=== PATIENT | male | born 1945 | race Caucasian/White ===

== ENCOUNTER 2018-07-01 09:10 | Inpatient (IN) | payer OTHER, MEDICARE ==
[2018-07-01] MEDS ORDERED: MAGNESIUM CITRATE 300 ML BOTTLE PO ONE (10:24)
--- NOTE | 2018-07-01 10:25 | PDOC ---
History of Present Illness - General Chief Complaint: Constipation Stated Complaint: CONSTIPATION Time Seen by Provider: 07/01/18 09:15 - History of Present Illness Initial Comments: 07/01/18 12:03 Chief complaint: Constipation History of present illness: Patient states that he has not had a bowel movement for over 10 days. He is normally constipated, but not to this extent. Has taken Metamucil, prune juice, and enemas without relief. Review of systems: Admits "bloating" but no evi pain. Denies nausea vomiting diarrhea hematemesis melena or bloody stool. Denies chest pain, shortness of breath, urinary tract symptoms including frequency urgency dysuria or hematuria , visual or focal neurologic symptoms, unsteadiness of gait. Remainder systems reviewed and found to be negative Past medical history: Denies prior GI disease, surgery, including GI bleeding, or obstruction. Admits high blood pressure, elevated lipids, and COPD. Medications as noted. CAD with Quadruple bypass 2009 without subsequent angina or other cardiac symptoms. Social history: Lives independently, cares for himself, daughter and son-in-law nearby, denies tobacco alcohol or nonprescription drugs. Ambulatory and moderately active Family history: Reviewed and noncontributory including early coronary artery disease, metabolic disease including diabetes, GI disease, cancer Physical exam: Alert oriented 3 no acute distress cooperative Afebrile, vital signs normal No pallor or icterus. PERRLA, ENT clear Neck supple without bruit mass or nodes Chest clear to P&A CV S1 and S2 normal without murmur rub or gallop pulses full and symmetric no JVD or edema no bruits irregularly irregular. Not tachycardic. Abdomen mildly distended. Bowel sounds are normal. No fluid wave. Soft without mass tenderness organomegaly. No CVAT Extremities: Multiple old contusions and ecchymoses. No sign of acute injury. No CCE Neurological intact Rectal exam no impaction. No masses or tenderness. No stool is present in the ampulla as far as the end of the fingertip. Stool guaiac was negative on finger , but there was no stool present visually. Impression: Without stool in the ampulla or impaction, suspect obstruction. However, there is no pain, nausea, or vomiting. Plan: Abdomen flat and upright, CBC chemistries, symptomatic treatment, further evaluation and treatment depending on results. Past History - Past Medical History Allergies/Adverse Reactions: Allergies Allergy/AdvReac Type Severity Reaction Status Date / Time No Known Allergies Allergy Verified 07/01/18 09:11 Home Medications: Ambulatory Orders Albuterol Sulfate 0.5% [Ventolin 0.5% -] 1 amp NEB ASDIR 07/01/18 Aspirin [ASA -] 81 mg PO DAILY 07/01/18 Diltiazem Cd [Cardizem Cd -] 120 mg PO DAILY 07/01/18 Ezetimibe [Zetia -] 10 mg PO DAILY 07/01/18 Hydrochlorothiazide [Hctz -] 12.5 mg PO DAILY 07/01/18 Lisinopril [Prinivil] 5 mg PO DAILY 07/01/18 Salmeterol/Fluticasone [Advair 100Mcg/50Mcg -] 1 inh PO BID 07/01/18 Tiotropium [place] [Spiriva] 18 mcg IH DAILY 07/01/18 Cardiac Disorders: Yes ([facility]) COPD: Yes HTN: Yes Hypercholesterolemia: Yes - Surgical History Cardiac Surgery: Yes ([facility]) - Suicide/Smoking/Psychosocial Hx Smoking History: Former smoker Have you smoked in the past 12 months: No Information on smoking cessation initiated: No Hx Alcohol Use: No Drug/Substance Use Hx: No *Physical Exam - Vital Signs Last Vital Signs Temp Pulse Resp BP Pulse Ox 97.5 F L 79 18 105/57 L 95 07/01/18 09:11 07/01/18 09:11 07/01/18 09:11 07/01/18 09:11 07/01/18 09:11 Moderate Sedation - Procedure Monitoring Vital Signs: Procedure Monitoring Vital Signs Temperature 97.5 F L 07/01/18 09:11 Pulse Rate 79 07/01/18 09:11 Respiratory Rate 18 07/01/18 09:11 Blood Pressure 105/57 L 07/01/18 09:11 O2 Sat by Pulse Oximetry (%) 95 07/01/18 09:11 ED Treatment Course - LABORATORY CBC & Chemistry Diagram: 07/01/18 11:52 07/01/18 11:52 Medical Decision Making - Medical Decision Making 07/01/18 15:24 CBC, chemistries, without significant abnormalities. Specifically, no white count, normal kidney function Flat and upright abdominal x-ray shows significant bowel dilatation with air- fluid levels. Considerable stool. CT with IV contrast is inconclusive for bowel obstruction. No transition zone is seen. However, dilatation of the colon above the rectosigmoid is significant. The caliber of the rectum is normal. Surgery consultation was initiated. Spoke by phone with Dr. Olsen. She recommended senna po and large volume soapsuds enemas. She will see patient in consultation. Hospitalist contact initiated for observation admission. 07/01/18 16:17 Spoke with hospitalist nurse practitioner, case discussed, she will see the patient and discussed with attending. Observation admission. Patient stable. *DC/Admit/Observation/Transfer Diagnosis at time of Disposition: Bowel obstruction Qualifiers: Intestinal obstruction type: other intestinal impaction Qualified Code(s): K56.49 - Other impaction of intestine - Discharge Dispostion Decision to Admit order: Yes - Referrals - Patient Instructions - Post Discharge Activity
[2018-07-01] MEDS ORDERED: MAGNESIUM CITRATE 300 ML BOTTLE ONE (10:30)
[2018-07-01 12:10] LABS: BASO % 0.8 % (0-2.0); HEMATOCRIT 32.8 % (35.4-49); HEMOGLOBIN 10.7 GM/dl (11.7-16.9); LYMPH % 6.9 % (8-40); MCHC 32.7 g/dl (32.0-35.9); MEAN CELL VOLUME 82.7 fl (80-96); MEAN PLT VOLUME 7.2 fl (7.5-11.1); NEUT % 84.3 % (42.8-82.8); PLATELET COUNT 379 K/MM3 (134-434); RBC 3.96 M/mm3 (4.00-5.60); WHITE BLOOD COUNT 10.4 K/mm3 (4.0-10.8)
[2018-07-01 12:18] LABS: ALBUMIN 3.2 g/dl (3.4-5.0); ALK PHOS 71 U/L (45-117); ANION GAP 8 MMOL/L (8-16); BILIRUBIN,TOTAL 0.6 mg/dl (0.2-1); BLOOD UREA NITROGEN 17 mg/dl (7-18); CALCIUM 9.3 mg/dl (8.5-10); CHLORIDE 95 mmol/L (98-107); CO2 29 mmol/L (21-32); CREATININE 1.1 mg/dl (0.55-1.3); GLUCOSE,RANDOM 117 mg/dl (74-106); POTASSIUM 4.1 mmol/L (3.5-5.1); SGOT/AST 18 U/L (15-37); SGPT/ALT 14 U/L (13-61); SODIUM 132 mmol/L (136-145); TOT PROT 6.3 g/dl (6.4-8.2)
[2018-07-01] MEDS ORDERED: SODIUM CHLORIDE 500 ML IV STA (12:46)
[2018-07-01] MEDS ORDERED: SENNOSIDES 8.6MG TABLET (FP) PO ONE (15:25)
[2018-07-01] MEDS: SODIUM CHLORIDE 1,000 ML IV SCH (16:50)
[2018-07-01 16:54] LABS: URINE APPEARANCE Clear; URINE BILIRUBIN Negative (NEGATIVE); URINE COLOR Yellow; URINE GLUCOSE (UA) Negative (NEGATIVE); URINE KETONE Negative (NEGATIVE); URINE LEUK ESTERASE Negative (NEGATIVE); URINE NITRITE Negative (NEGATIVE); URINE PROTEIN Trace (NEGATIVE)
[2018-07-01 17:32] VITALS: BMI 24.3
--- NOTE | 2018-07-01 20:53 | CONSULT ---
Consult Consult Specialty:: General Surgery Referred by:: Dr. Long Reason for Consultation:: fecal impaction with dilated small bowel - History of Present Illness Chief Complaint: constipation, abdominal distention and pain History of Present Illness: 73yo M with HTN, HLD, CAD s/p CABGx4, silent [place]'s x5 ("that I didn't know I had "), COPD (120pk-yr history), chronic constipation, presented to ER with 10 days of constipation and increasing abdominal distention with pain across the middle of his abdomen, worse in last few days, associated with some back pain in last several days as well. He denies N/V, and has been eating his usual diet throughout (had cereal for dinner last night); passing gas occasionally but last BM was a week ago Friday. He frequently goes 2-3 days without stool, though it is formed when he does go, and firm but not hard to get out. He uses prune juice prn, and when he realized after 3-4 days that he still had not gone last week, he took Miralax 1 scoop daily for 6 days without effect. He drinks a lot of coffee daily, and very little water in his diet. He tried a suppository yesterday, also without effect. He reports weight loss of 30-35 lbs in last year , starting with about a month when "everything tasted like dirt," so he started eating less, and just continued since then. His clothes are a lot looser. He never had a colonoscopy, but did have sigmoidoscopy once a number of years ago. He quit smoking when he had his CABG. In the ER, he has normal wbc, is anemic with Hb 10.7, and slightly hyponatremic at 132. CT was done showing copious stool throughout the colon, but not past the mid-lower sigmoid, with no clear obstructing lesion or mass. Small bowel is mildly dilated throughout, but no enteral contrast was given. He was given magnesium citrate in ER, and two senna tabs, without effect as of yet. Surgery was asked to evaluate. He is seen and examined in his bed, with at bedside , in the presence of Patria Howe NP. He is mostly uncomfortable when sleeping, though he does have some pain even now, indicating across the middle of his abdomen. He did pass a very little bit of mucus earlier, possibly residual from the suppository. He is still passing occasional flatus. He has no N/V. He describes having tried to use the bathroom, and voided well, but it hurt to push too hard and he "couldn't squeeze well." - History Source History Provided By: Patient, Family Member () Limitations to Obtaining History: No Limitations - Past Medical History Cardio/Vascular: Yes: CAD, HTN, Hyperlipdemia, [place] (silent ones) Pulmonary: Yes: COPD, O2 Dependent (3L at night) Gastrointestinal: Yes: Constipation Renal/: Yes: BPH - Past Surgical History Past Surgical History: Yes: CABG (x4 2010). No: Colonoscopy (sigmoidoscopy only once years ago) - Alcohol/Substance Use Hx Alcohol Use: Yes (once a week) History of Substance Use: reports: None (drinks a lot of caffeine and very little water) - Smoking History Smoking history: Former smoker Have you smoked in the past 12 months: No If you are a former smoker, when did you quit?: 2010 - 3ppd x 40 yrs - Social History Usual Living Arrangement: With Spouse ADL: Independent Home Medications - Allergies Allergies/Adverse Reactions: Allergies Allergy/AdvReac Type Severity Reaction Status Date / Time No Known Allergies Allergy Verified 07/01/18 09:11 - Home Medications Home Medications: Ambulatory Orders Albuterol Sulfate 0.5% [Ventolin 0.5% -] 1 amp NEB ASDIR 07/01/18 Aspirin [ASA -] 81 mg PO DAILY 07/01/18 Diltiazem Cd [Cardizem Cd -] 120 mg PO HS 07/01/18 Ezetimibe [Zetia -] 10 mg PO HS 07/01/18 Hydrochlorothiazide [Hctz -] 12.5 mg PO HS 07/01/18 Lisinopril [Prinivil] 5 mg PO HS 07/01/18 Salmeterol/Fluticasone [Advair 100Mcg/50Mcg -] 1 inh PO BID 07/01/18 Tiotropium [place] [Spiriva] 18 mcg IH DAILY 07/01/18 Home Medications (free text): used miralax for 6 days last week. occasional ibuprofen Family Disease History - Family Disease History Family History: Unremarkable (noncontributory) Review of Systems - Review of Systems Constitutional: reports: Loss of Appetite (about a year ago "everything tasted like dirt" - started eating less, and just continued), Unintentional Wgt. Loss ( 30-35 pounds in last year). denies: Chills, Fever Eyes: reports: Other (wears glasses). denies: Recent Change in Vision HENT: reports: Other (dentures upper). denies: Difficult Swallowing, Throat Pain Neck: denies: Swollen Glands, Tenderness Cardiovascular: denies: Chest Pain, Palpitations Respiratory: denies: Cough, SOB Gastrointestinal: reports: Abdominal Pain (with hpi), Bloating (with hpi), Constipation (chronic - sometimes goes q2-3 days, uses prune juice, suppository prn). denies: Diarrhea, Nausea, Vomiting Genitourinary: reports: Other (nocturia). denies: Burning, Dysuria Musculoskeletal: reports: Back Pain (with hpi, last few days). denies: Joint Pain, Muscle Pain Integumentary: denies: Change in Color, Rash Neurological: denies: Dizziness, Headache, Unsteady Gait Endocrine: reports: Unexplained Weight Loss (see above) Hematology/Lymphatic: reports: Easily Bruised. denies: Excessive Bleeding Psychiatric: denies: Anxiety, Depression Physical Exam Vital Signs: Vital Signs Temperature 97.6 F 07/01/18 18:00 Pulse Rate 68 07/01/18 18:00 Respiratory Rate 19 07/01/18 18:00 Blood Pressure 120/62 07/01/18 18:00 O2 Sat by Pulse Oximetry (%) 96 07/01/18 16:50 Constitutional: Yes: Well Nourished, No Distress, Calm Eyes: Yes: Conjunctiva Clear, EOM Intact, Other (glasses) HENT: Yes: Atraumatic, Normocephalic, Other (edentulous upper) Neck: Yes: Supple, Trachea Midline Cardiovascular: Yes: Regular Rate and Rhythm, Murmur (prominent) Respiratory: Yes: Regular, CTA Bilaterally Gastrointestinal: Yes: Soft, Distention, Hyperactive Bowel Sounds, Tenderness ( mild left-sided, no shirley/guard). No: Palpable Mass ...Rectal Exam: Yes: Hemorrhoids/External (couple of small skin tags), Sphincter Tone Normal, Other (large prostate; vault empty to reach of fingertip , nothing on glove tip) Renal/: No: CVA Tenderness - Left, CVA Tenderness - Right Musculoskeletal: No: Joint Stiffness, Joint Swelling Extremities: No: Cool, Cyanosis Edema: No Peripheral Pulses WNL: Yes Integumentary: Yes: Bruising (scattered ecchymoses on arms), Venous Stasis Changes. No: Jaundice, Rash Neurological: Yes: Alert, Oriented Psychiatric: Yes: Alert, Oriented Labs: CBC, BMP 07/01/18 11:52 07/01/18 11:52 CMP Sodium 132 mmol/L (136-145) L 07/01/18 11:52 Potassium 4.1 mmol/L (3.5-5.1) 07/01/18 11:52 Chloride 95 mmol/L (98-107) L 07/01/18 11:52 Carbon Dioxide 29 mmol/L (21-32) 07/01/18 11:52 Anion Gap 8 MMOL/L (8-16) 07/01/18 11:52 BUN 17 mg/dl (7-18) 07/01/18 11:52 Creatinine 1.1 mg/dl (0.55-1.3) 07/01/18 11:52 Creat Clearance w eGFR > 60 (>60) 07/01/18 11:52 Random Glucose 117 mg/dl (74-106) H 07/01/18 11:52 Calcium 9.3 mg/dl (8.5-10) 07/01/18 11:52 Total Bilirubin 0.6 mg/dl (0.2-1) 07/01/18 11:52 AST 18 U/L (15-37) 07/01/18 11:52 ALT 14 U/L (13-61) 07/01/18 11:52 Alkaline Phosphatase 71 U/L (45-117) 07/01/18 11:52 Total Protein 6.3 g/dl (6.4-8.2) L 07/01/18 11:52 Albumin 3.2 g/dl (3.4-5.0) L 07/01/18 11:52 Urine Test Results Urine Color Yellow 07/01/18 15: Urine Appearance Clear 07/01/18 15:19 Urine pH 7.0 (4.5-8) 07/01/18 15:19 Ur Specific [place] 1.010 (1.010-1.035) 07/01/18 15:19 Urine Protein Trace (NEGATIVE) 07/01/18 15:19 Urine Glucose (UA) Negative (NEGATIVE) 07/01/18 15:19 Urine Ketones Negative (NEGATIVE) 07/01/18 15:19 Urine Blood Negative (NEGATIVE) 07/01/18 15:19 Urine Nitrite Negative (NEGATIVE) 07/01/18 15:19 Urine Bilirubin Negative (NEGATIVE) 07/01/18 15:19 Ur Leukocyte Esterase Negative (NEGATIVE) 07/01/18 15:19 Imaging - Results Cat Scan: Report Reviewed, Image Reviewed (images personally reviewed - copious stool throughout colon to mid-lower sigmoid but not in rectum, no obvious mass; small bowel mildly dilated, (no oral contrast used), + renal cysts, full bladder (per pt has voided more than once since), no free fluid or air) Problem List - Problems (1) Fecal impaction of colon Assessment/Plan: chronic constipation, now with pancolonic impaction pt had senna 2 tabs in ER and mag citrate without nausea or effect as of yet + flatus periodically through this time would repeat 2 senna tonight and give 1-1.5L warm soap suds enema if no effect by morning, have pt take Golytely tomorrow at steady pace unless he has N/V encourage ambulation as able may need bedside commode will f/u tomorrow CEA ordered trend labs watch lytes keep NPO except meds for now Tylenol prn for pain (iv or po) - avoid narcotics pt advised that he will need to increase non-caffeinated fluids in his usual diet after discharge, especially if using fiber supplements or miralax, and with continued heavy caffeine use consider GI consult at some point - pt does need colonoscopy (never had one) could consider doing this admission once cleaned out, or if above measures fail to move stool seen and discussed with Patria Howe NP Code(s): K56.41 - FECAL IMPACTION (2) Generalized abdominal pain Code(s): R10.84 - GENERALIZED ABDOMINAL PAIN (3) Hypertension Assessment/Plan: would hold HCTZ for now Code(s): I10 - ESSENTIAL (PRIMARY) HYPERTENSION Qualifiers: Hypertension type: essential hypertension Qualified Code(s): I10 - Essential (primary) hypertension (4) CAD (coronary artery disease) Code(s): I25.10 - ATHSCL HEART DISEASE OF [place] CORONARY ARTERY W/O ANG PCTRS Qualifiers: Coronary Disease-Associated Artery/Lesion type: [place] artery [place] vs. transplanted heart: [place] heart Associated angina: without angina Qualified Code(s): I25.10 - Atherosclerotic heart disease of [place] coronary artery without angina pectoris (5) COPD (chronic obstructive pulmonary disease) Code(s): J44.9 - CHRONIC OBSTRUCTIVE PULMONARY DISEASE, UNSPECIFIED Qualifiers: COPD type: emphysema Emphysema type: unspecified Qualified Code(s): J43.9 - Emphysema, unspecified
[2018-07-01] MEDS ORDERED: SENNOSIDES 8.6MG TABLET (FP) PO PRN (21:06)
--- NOTE | 2018-07-01 21:14 | HP ---
Admitting History and Physical - Primary Care Physician PCP: Robert Gonzáles - Admission Chief Complaint: no bowel movement History of Present Illness: 73 year old M with h/o CAD s/p 4V CABG (2009), HTN and COPD due to 90pack year tobacco use presents to ED for evaluation due to severe constipation over the last 10days. PAtient reports suffering from chronic constipation with BM q3days (sometimes after taking prune juice), his diet is low in fiber and high in coffee intake. Approximately 1 yr ago pt reports 1 month of "all foods tasting bad because of a metallic taste in his mouth." Since this time, pt has lost 35lbs and his appetite had changed considerably to have only "light foods". Mr. Fernandez endorses worsening abdominal distention, no bowel movement and epigastric fullness for the last 10days, he denies N/V/HAINES/CP/SOB/Dysuria/ Hematuria. Pt called his PCP who recommended a rectal suppository on 06/30 and if he had no bowel movement, then he should proceed to the ED on 07/01 for further evaluation. Pt has not used any other laxative or stool softeners, but does endorse a 6day trial of miralax a few days ago. In ED: Vitals were: BP 120/62, HR 68, T 97.6, O2 sat 96, RR 19 Routine labs WNL Flat and upright abdominal x-ray shows significant bowel dilatation with air- fluid levels. Considerable stool. CT with IV contrast is inconclusive for bowel obstruction. No transition zone is seen. However, dilatation of the colon above the rectosigmoid is significant. The caliber of the rectum is normal. General Surgery consultation was initiated with Dr. Olsen. Recommendation was Senna 2tabs and large volume soapsuds enemas. HEALTHCARE PROVIDERS: CARDS: Dr. Gordon Mccabe PCP: Dr. Gonzáles Pulm: Dr. Joana Mahoney Urology: Dr. 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 ETOH: rare, 1 drink per week Home Medications - Allergies Allergies/Adverse Reactions: Allergies Allergy/AdvReac Type Severity Reaction Status Date / Time No Known Allergies Allergy Verified 07/01/18 09:11 - Home Medications Home Medications: Ambulatory Orders Albuterol Sulfate 0.5% [Ventolin 0.5% -] 1 amp NEB ASDIR 07/01/18 Aspirin [ASA -] 81 mg PO DAILY 07/01/18 Crestor 40 mg 07/01/18 Diltiazem Cd [Cardizem Cd -] 120 mg PO HS 07/01/18 Ezetimibe [Zetia -] 10 mg PO HS 07/01/18 Hydrochlorothiazide [Hctz -] 12.5 mg PO HS 07/01/18 Lisinopril [Prinivil] 5 mg PO HS 07/01/18 Salmeterol/Fluticasone [Advair 100Mcg/50Mcg -] 1 inh PO BID 07/01/18 Tiotropium [place] [Spiriva] 18 mcg IH DAILY 07/01/18 Family Disease History - Family Disease History Family Disease History: Other: Father ( (75) unknown cause), Mother ( (75) VA), Sister (Alive (71) DMII) Review of Systems - Review of Systems Constitutional: reports: No Symptoms Eyes: reports: No Symptoms HENT: reports: No Symptoms Neck: reports: No Symptoms Cardiovascular: reports: No Symptoms Respiratory: reports: No Symptoms Gastrointestinal: reports: Abdominal Pain, Bloating, Constipation Genitourinary: reports: No Symptoms Breasts: reports: No Symptoms Reported Musculoskeletal: reports: No Symptoms Integumentary: reports: No Symptoms Neurological: reports: No Symptoms Endocrine: reports: No Symptoms Hematology/Lymphatic: reports: No Symptoms Psychiatric: reports: Altered Sleep Pattern (chronic insomnia) Physical Examination Vital Signs: Vital Signs Temperature 97.6 F 07/01/18 18:00 Pulse Rate 68 07/01/18 18:00 Respiratory Rate 19 07/01/18 18:00 Blood Pressure 120/62 07/01/18 18:00 O2 Sat by Pulse Oximetry (%) 96 07/01/18 16:50 Constitutional: Yes: No Distress, Calm Eyes: Yes: Conjunctiva Clear, EOM Intact, PERRL HENT: Yes: Atraumatic, Normocephalic Neck: Yes: Supple, Trachea Midline Cardiovascular: Yes: Regular Rate and Rhythm, Murmur (loud systolic murmur A/P region) Respiratory: Yes: Regular, CTA Bilaterally Gastrointestinal: Yes: Soft, Abdomen, Obese, Distention, Hyperactive Bowel Sounds, Tenderness (periumbilical region) Musculoskeletal: Yes: WNL Extremities: Yes: WNL Edema: No Peripheral Pulses WNL: Yes Peripheral Pulses: Left Radial: 2+, Right Radial: 2+, Left Doralis Pedis: 2+, Right Dorsalis Pedis: 2+ Integumentary: Yes: Venous Stasis Changes Neurological: Yes: Alert, Oriented ...Motor Strength: WNL Psychiatric: Yes: Alert, Oriented Labs: CBC, BMP 07/01/18 11:52 07/01/18 11:52 Imaging - Results Chest X-ray: Report Reviewed (CXR 07/01/2018 Chest: Shortness of breath A single view of the chest has been submitted. There are no prior studies for comparison. There are sternal sutures and clips, prominent estela and what may be some left upper lobe atelectasis. The left base is clear. The right lung is clear. The angles are sharp. The bones are intact. The soft tissues are intact. Impression : Previous mediastinal surgery. Left upper lobe atelectasis. Follow -up recommended. If findings do not resolve then CT is needed. Reported By: Yoni Greene MD 07/01/18 [id number]) Cat Scan: Report Reviewed (CT scan 07/01/2018 IMPRESSION: Mild bronchiectatic changes in the included the right lower lobe. Over distended gallbladder with suggestion of a small sludge layering posteriorly. Bilateral renal simple cysts, as described above. Partially distended stomach without gross wall thickening. Moderate to large amount of fecal residue within an over distended/dilated colon measuring up to 8.5 cm in diameter down to the mid sigmoid colon level. There is collapse of the mid sigmoid colon down to the rectosigmoid junction without gross wall thickening. Further evaluation of the colon is needed. Slightly dilated fluid-filled small bowel bowel loops in the entire abdomen and pelvis likely on the basis of ileus. Multilevel degenerative disc disease, as described above Reported By: Lilly Acuña MD [id number]) Other: Report Reviewed (Abdomen Flat and upright 07/01/2018 Abdomen: Constipation. 3 views of the abdomen reveal abdominal distention with retained stool, no sign of free air and no sign of organomegaly or calcifications of significance. The lung bases appear well aerated. The heart is not enlarged. There are chest clips. Because of the abdominal distention, CT is suggested to evaluate for an obstruction. A CT was scheduled for later in the day. Please see that report when available. Reported By: Yoni Greene MD 07/01/18 [id number]) Problem List - Problems (1) Bowel obstruction Assessment/Plan: Surgery consulted, recommendations appreciated Senna tabs qhs 1.5L tap water enema NOW, consider golytely if no bowel movement by the morning consider GI consult for C-scope, pt has never had colonoscopy, remote h/o sigmoidoscopy colace TID NPO except meds Normal saline 42ml/hr overnight for 1L Code(s): K56.609 - UNSP INTESTNL OBST, UNSP TO PARTIAL VERSUS COMPLETE OBST Qualifiers: Intestinal obstruction type: other intestinal impaction Qualified Code(s): K56.49 - Other impaction of intestine; K56.4 - Other impaction of intestine (2) CAD (coronary artery disease) Assessment/Plan: Zetia 10mg crestor 40mg qhs ASA 81mg daily echo ordered for harsh systolic murmur Code(s): I25.10 - ATHSCL HEART DISEASE OF [place] CORONARY ARTERY W/O ANG PCTRS Qualifiers: Coronary Disease-Associated Artery/Lesion type: [place] artery [place] vs. transplanted heart: [place] heart Associated angina: without angina Qualified Code(s): I25.10 - Atherosclerotic heart disease of [place] coronary artery without angina pectoris (3) COPD (chronic obstructive pulmonary disease) Assessment/Plan: PRN nebs cont spiriva and advair Code(s): J44.9 - CHRONIC OBSTRUCTIVE PULMONARY DISEASE, UNSPECIFIED Qualifiers: COPD type: emphysema Emphysema type: unspecified Qualified Code(s): J43.9 - Emphysema, unspecified (4) Hypertension Assessment/Plan: lisinopril 5mg qhs Hold Hctz 12.5mg daily Code(s): I10 - ESSENTIAL (PRIMARY) HYPERTENSION Qualifiers: Hypertension type: essential hypertension Qualified Code(s): I10 - Essential (primary) hypertension (5) Atrial fibrillation Assessment/Plan: cardizem 120mg qhs continuous tele Code(s): I48.91 - UNSPECIFIED ATRIAL FIBRILLATION Assessment/Plan PPX: pepcid DVT PPX: SCDs and ambulate as tolerated DISPO: Full code Visit type - Emergency Visit Emergency Visit: Yes ED Registration Date: 07/01/18 Care time: The patient presented to the Emergency Department on the above date and was hospitalized for further evaluation of their emergent condition. - New Patient This patient is new to me today: Yes Date on this admission: 07/01/18 - Critical Care Critical Care patient: No
[2018-07-01] MEDS: ALBUTEROL SO4 0.083% IH SOL 2.5 MG/3 ML VIAL.NEB. NEB SCH (21:29)
[2018-07-01] MEDS: LISINOPRIL 5 MG TABLET (FP) PO SCH (21:38)
[2018-07-01] MEDS: EZETIMIBE 10 MG TABLET (FP) PO SCH (21:38)
[2018-07-01] MEDS: DOCUSATE SODIUM 100 MG CAPSULE (FP) PO SCH (21:38)
[2018-07-01] MEDS: FLUTICASONE/SALMETEROL 100 MCG/50 MCG DISKUS IH SCH (21:39)
[2018-07-01] MEDS: ROSUVASTATIN CA 40 MG TABLET PO SCH (22:42)
[2018-07-02] MEDS: ACETAMINOPHEN 325 MG TABLET (FP) PO PRN (03:16)
[2018-07-02] MEDS: DOCUSATE SODIUM 100 MG CAPSULE (FP) PO SCH ×3 (06:40→21:27)
[2018-07-02 08:21] LABS: BASO % 0.4 % (0-2.0); EOS % 1.2 % (0-4.5); HEMATOCRIT 31.6 % (35.4-49); HEMOGLOBIN 10.1 GM/dl (11.7-16.9); LYMPH % 7.9 % (8-40); MCH 26.5 pg (25.7-33.7); MEAN PLT VOLUME 7.5 fl (7.5-11.1); MONO % 9.4 % (3.8-10.2); NEUT % 81.1 % (42.8-82.8); PLATELET COUNT 365 K/MM3 (134-434); RBC 3.81 M/mm3 (4.00-5.60); RDW 15.8 % (11.9-15.9); WHITE BLOOD COUNT 10.8 K/mm3 (4.0-10.8)
[2018-07-02 08:26] LABS: ALK PHOS 65 U/L (45-117); ANION GAP 9 MMOL/L (8-16); BILIRUBIN,TOTAL 0.6 mg/dl (0.2-1); BLOOD UREA NITROGEN 16 mg/dl (7-18); CHLORIDE 99 mmol/L (98-107); CO2 27 mmol/L (21-32); CREATININE 0.9 mg/dl (0.55-1.3); GLUCOSE,RANDOM 98 mg/dl (74-106); MAGNESIUM 2.6 mg/dL (1.8-2.4); PHOSPHOROUS 3.9 mg/dl (2.5-4.9); SGOT/AST 17 U/L (15-37); SGPT/ALT 13 U/L (13-61); SODIUM 135 mmol/L (136-145); TOT PROT 5.8 g/dl (6.4-8.2)
--- NOTE | 2018-07-02 09:20 | PN ---
Physical Exam: SUBJECTIVE: Patient seen and examined at bedside. Has not had BM despite enema. OBJECTIVE: Vital Signs Period Temp Pulse Resp BP Sys/Robertson Pulse Ox Last 24 Hr 97.4 F-98.3 F 64-78 16-19 102-143/51-69 94-98 GENERAL: The patient is awake, alert, and fully oriented, in no acute distress. LUNGS: Breath sounds equal, clear to auscultation bilaterally, no wheezes, no crackles, no accessory muscle use. HEART: Regular rate and rhythm, S1, S2 ABDOMEN: Soft, distended, mildly diffusely tender, + bowel sounds EXTREMITIES: 2+ pulses, warm, well-perfused, no edema. NEUROLOGICAL: Cranial nerves II through XII grossly intact. Normal speech SKIN: Warm, dry, normal turgor Laboratory Results - last 24 hr 07/01/18 07/01/18 07/01/18 10:24 11:52 11:52 WBC 10.4 RBC 3.96 L Hgb 10.7 L Hct 32.8 L MCV 82.7 MCH 27.0 MCHC 32.7 RDW 16.0 H Plt Count 379 MPV 7.2 L Absolute Neuts (auto) 8.8 Neutrophils % 84.3 H Lymphocytes % 6.9 L Monocytes % 7.0 Eosinophils % 1.0 Basophils % 0.8 Sodium 132 L Potassium 4.1 Chloride 95 L Carbon Dioxide 29 Anion Gap 8 BUN 17 Creatinine 1.1 Creat Clearance w eGFR > 60 Random Glucose 117 H Calcium 9.3 Phosphorus Magnesium Total Bilirubin 0.6 AST 18 ALT 14 Alkaline Phosphatase 71 Creatine Kinase Troponin I Total Protein 6.3 L Albumin 3.2 L Urine Color Urine Appearance Urine pH Ur Specific [place] Urine Protein Urine Glucose (UA) Urine Ketones Urine Blood Urine Nitrite Urine Bilirubin Urine Urobilinogen Ur Leukocyte Esterase Stool Occult Blood Negative 07/01/18 07/02/18 07/02/18 15:19 06:50 06:50 WBC RBC Hgb Hct MCV MCH MCHC RDW Plt Count MPV Absolute Neuts (auto) Neutrophils % Lymphocytes % Monocytes % Eosinophils % Basophils % Sodium 135 L Potassium 5.0 Chloride 99 Carbon Dioxide 27 Anion Gap 9 BUN 16 Creatinine 0.9 Creat Clearance w eGFR > 60 Random Glucose 98 Calcium 9.0 Phosphorus 3.9 Magnesium 2.6 H Total Bilirubin 0.6 AST 17 ALT 13 Alkaline Phosphatase 65 Creatine Kinase 100 Troponin I < 0.03 Total Protein 5.8 L Albumin 3.0 L Urine Color Yellow Urine Appearance Clear Urine pH 7.0 Ur Specific [place] 1.010 Urine Protein Trace Urine Glucose (UA) Negative Urine Ketones Negative Urine Blood Negative Urine Nitrite Negative Urine Bilirubin Negative Urine Urobilinogen 1.0 Ur Leukocyte Esterase Negative Stool Occult Blood 07/02/18 06:55 WBC 10.8 RBC 3.81 L Hgb 10.1 L Hct 31.6 L MCV 83.0 MCH 26.5 MCHC 32.0 RDW 15.8 Plt Count 365 MPV 7.5 Absolute Neuts (auto) 8.8 Neutrophils % 81.1 Lymphocytes % 7.9 L Monocytes % 9.4 Eosinophils % 1.2 Basophils % 0.4 Sodium Potassium Chloride Carbon Dioxide Anion Gap BUN Creatinine Creat Clearance w eGFR Random Glucose Calcium Phosphorus Magnesium Total Bilirubin AST ALT Alkaline Phosphatase Creatine Kinase Troponin I Total Protein Albumin Urine Color Urine Appearance Urine pH Ur Specific [place] Urine Protein Urine Glucose (UA) Urine Ketones Urine Blood Urine Nitrite Urine Bilirubin Urine Urobilinogen Ur Leukocyte Esterase Stool Occult Blood Active Medications Generic Name Dose Route Start Last Admin Trade Name Freq PRN Reason Stop Dose Admin Acetaminophen 650 mg 07/01/18 21:02 07/02/18 03:16 Tylenol - PO 650 mg Q6H PRN Administration FEVER Albuterol Sulfate 1 amp 07/01/18 21:15 07/01/18 21:29 Ventolin 0.083% Nebulizer Soln - NEB 1 amp RQID ALBINA Administration Aspirin 81 mg 07/02/18 10:00 Asa - PO DAILY [facility] Cholecalciferol 2,000 unit 07/02/18 10:00 Vitamin D3 - PO DAILY [facility] Cyanocobalamin 1,000 mcg 07/02/18 10:00 Vitamin B12 - PO DAILY [facility] Diltiazem HCl 120 mg 07/01/18 22:00 07/01/18 21:38 Cardizem Cd - PO 120 mg HS ALBINA Administration Docusate Sodium 100 mg 07/01/18 22:00 07/02/18 06:40 Colace - PO 100 mg TID ALBINA Administration Ezetimibe 10 mg 07/01/18 22:00 07/01/18 21:38 Zetia - PO 10 mg HS [facility]INA Administration Sodium Chloride 1,000 mls @ 100 mls/hr 07/01/18 16:30 07/01/18 16:50 Normal Saline - IV 100 mls/hr ASDIR [facility] Administration Lisinopril 5 mg 07/01/18 22:00 07/01/18 21:38 Prinivil PO 5 mg HS [facility] Administration Rosuvastatin Calcium 40 mg 07/01/18 22:45 07/01/18 22:42 Crestor - PO 40 mg HS [facility] Administration Fluticasone/Salmeterol 1 puff 07/01/18 22:00 07/01/18 21:39 Advair 100mcg/50mcg - IH Not Given BID ALBINA Senna 2 tab 07/01/18 21:06 07/01/18 22:42 Senna - PO 2 tab HS PRN Administration CONSTIPATION Tiotropium [place] 2 puff 07/02/18 10:00 Spiriva Respimat IH DAILY [facility] ASSESSMENT/PLAN 73 year-old male with a PMH significant for HTN, CAD s/p CABG, COPD, and chronic constipation. Admitted for SBO. SBO --07/01 CTAP: moderate to large amount of fecal residue down to the mid- sigmoid; collapse of the mid sigmoid to rectosigmoid junction; ileus --soap suds enema without relief --start Go-Lytely --no nausea, no vomiting, no NGT Hypertension --BP stable --coninue lisinopril CAD s/p CABG --continue diltiazem, Crestor, Zetia; ASA on hold COPD --duonebs. Spiriva FEN Fluids: NS@100mL/hr Electrolytes: replete as indicated Nutrition: NPO DVT prophylaxis: SCDs, oob, ambulation Dispo: continues to require inpatient care. Full code. Visit type - Emergency Visit Emergency Visit: Yes ED Registration Date: 07/01/18 Care time: The patient presented to the Emergency Department on the above date and was hospitalized for further evaluation of their emergent condition. - New Patient This patient is new to me today: No - Critical Care Critical Care patient: No
[2018-07-02] MEDS ORDERED: ASPIRIN 81 MG CHEWABLE TABLETS PO SCH (10:00)
[2018-07-02] MEDS ORDERED: PT OWN MED DRAWER 7, Y5N ONE ×2 (10:25→21:09)
[2018-07-02] MEDS: ALBUTEROL SO4 0.083% IH SOL 2.5 MG/3 ML VIAL.NEB. NEB SCH ×4 (10:27→21:27)
[2018-07-02] MEDS: CYANOCOBALAMIN 1,000 MCG TABLET (FP) PO SCH (10:28)
[2018-07-02] MEDS: CHOLECALCIFEROL (VITAMIN D3) 1,000 UNIT TABLET (FP) PO SCH (10:28)
[2018-07-02] MEDS: FLUTICASONE/SALMETEROL 100 MCG/50 MCG DISKUS IH SCH ×2 (10:29→22:00)
[2018-07-02] MEDS ORDERED: PEG3350/SOD SULF,BICARB,CL/KCL 4,000 ML SOLN.RECON PO ONE ×2 (11:00→20:00)
[2018-07-02] MEDS: TIOTROPIUM BROMIDE 2.5 MCG (SPIRIVA) RESPIMAT INHALER IH SCH (11:20)
--- NOTE | 2018-07-02 12:53 | ECHO ---
Name: FELICITASBARBARA CAMPOS Exam:Adult Echocardiogram Study Date: 07/02/2018 08:18 AM Age: 73 yrs Reason For Study: CAD Height: 68 in Weight: 159 lb BSA: 1.9 m2 MMode/2D Measurements & Calculations IVSd: 1.1 cm Ao root diam: 3.4 cm LVIDd: 5.9 cm LVIDs: 3.8 cm LVPWd: 1.1 cm EDV(Teich): 174.3 ml MV Diam: 3.2 cm ESV(Teich): 62.1 ml LVOT diam: 2.5 cm Doppler Measurements & Calculations MV E max annemarie: 124.8 cm/sec MV area (1 diam): 7.8 cm2 MV A max annemarie: 86.4 cm/sec MV Flow area(1diam): 7.8 cm2 MV E/A: 1.4 Ao V2 max: 143.0 cm/sec LV V1 max P.1 mmHg Ao max P.2 mmHg LV V1 mean P.3 mmHg Ao V2 mean: 91.9 cm/sec LV V1 max: 88.2 cm/sec Ao mean P.0 mmHg LV V1 mean: 51.3 cm/sec Ao V2 VTI: 29.8 cm LV V1 VTI: 17.5 cm HERSON(I,D): 2.8 cm2 HERSON(V,D): 2.9 cm2 MR max annemarie: 490.0 cm/sec SV(LVOT): 83.4 ml MR max P.0 mmHg Procedure A complete two-dimensional transthoracic echocardiogram was performed (2D, M-mode, Doppler and color flow Doppler). Left Ventricle The left ventricular size, thickness and function are normal. The left ventricular ejection fraction is normal. Ejection Fraction = 60-65%. The left ventricular wall motion is normal. Right Ventricle The right ventricle is normal in size and function. Atria Normal left and right atrial size and function. Mitral Valve There is moderate mitral regurgitation. Tricuspid Valve No tricuspid regurgitation. There was insufficient TR detected to calculate RV systolic pressure. Aortic Valve There is mild aortic valve thickening. No hemodynamically significant valvular aortic stenosis. No ao rtic regurgitation is present. Pulmonic Valve There is no pulmonic valvular regurgitation. Great Vessels The aortic root is normal size. Pericardium/Pleura There is no pericardial effusion. Interpretation Summary The left ventricular size, thickness and function are normal The right ventricle is normal in size and function. There is moderate mitral regurgitation. MD Byrant Jackson 07/02/2018 12:53 PM
--- NOTE | 2018-07-02 15:33 | PN ---
Progress Note, Physician History of Present Illness: Pt with colon full of stool, impacted but not past mid-lower sigmoid. Has had laxatives, enema last night with no real effect, and started on Golytely just after noon. Shortly before I saw him, he had a good amount of diarrhea, so has started passing stool. He feels a little bit better, though still mildly uncomfortable intermittently, and still with some back pain depending on his position. He has finished more than 2L of the solution, and is drinking steadily. No fevers, no nausea, no vomiting, no sig abd cramping. He is seen and examined sitting up in chair at bedside. - Current Medication List Current Medications: Active Medications Acetaminophen (Tylenol -) 650 mg PO Q6H PRN PRN Reason: FEVER Last Admin: 07/02/18 03:16 Dose: 650 mg Albuterol Sulfate (Ventolin 0.083% Nebulizer Soln -) 1 amp NEB RQID [facility] Last Admin: 07/02/18 15:14 Dose: 1 amp Aspirin (Asa -) 81 mg PO DAILY [facility] Last Admin: 07/02/18 10:28 Dose: 81 mg Cholecalciferol (Vitamin D3 -) 2,000 unit PO DAILY [facility] Last Admin: 07/02/18 10:28 Dose: 2,000 unit Cyanocobalamin (Vitamin B12 -) 1,000 mcg PO DAILY [facility] Last Admin: 07/02/18 10:28 Dose: 1,000 mcg Diltiazem HCl (Cardizem Cd -) 120 mg PO HS [facility] Last Admin: 07/01/18 21:38 Dose: 120 mg Docusate Sodium (Colace -) 100 mg PO TID [facility] Last Admin: 07/02/18 06:40 Dose: 100 mg Ezetimibe (Zetia -) 10 mg PO HS [facility] Last Admin: 07/01/18 21:38 Dose: 10 mg Sodium Chloride (Normal Saline -) 1,000 mls @ 100 mls/hr IV ASDIR [facility] Last Admin: 07/01/18 16:50 Dose: 100 mls/hr Lisinopril (Prinivil) 5 mg PO HS [facility] Last Admin: 07/01/18 21:38 Dose: 5 mg Rosuvastatin Calcium (Crestor -) 40 mg PO [facility] Last Admin: 07/01/18 22:42 Dose: 40 mg Fluticasone/Salmeterol (Advair 100mcg/50mcg -) 1 puff IH BID [facility] Last Admin: 07/02/18 10:29 Dose: 1 inh Senna (Senna -) 2 tab PO HS PRN PRN Reason: CONSTIPATION Last Admin: 07/01/18 22:42 Dose: 2 tab Tiotropium [place] (Spiriva Respimat) 2 puff IH DAILY [facility] Last Admin: 07/02/18 11:20 Dose: Not Given - Objective Vital Signs: Vital Signs Temperature 97.4 F L 07/02/18 14:00 Pulse Rate 74 07/02/18 14:00 Respiratory Rate 18 07/02/18 14:00 Blood Pressure 120/42 L 07/02/18 14:00 O2 Sat by Pulse Oximetry (%) 93 L 07/02/18 14:00 Constitutional: Yes: Well Nourished, No Distress, Calm Eyes: Yes: Conjunctiva Clear, EOM Intact HENT: Yes: Atraumatic, Normocephalic Gastrointestinal: Yes: Soft, Distention (little less than yesterday but still distended). No: Tenderness (minimal left sided, better than yesterday) ...Rectal Exam: Yes: Deferred Musculoskeletal: Yes: Back Pain (tenderness not assessed) Extremities: No: Cool, Cyanosis Integumentary: Yes: Bruising (ecchymoses scattered on BUE), Skin Tear (small at previous IV site L antecub - dressed with tegaderm), Venous Stasis Changes. No : Jaundice, Rash Neurological: Yes: Alert, Oriented Labs: CBC, BMP 07/02/18 06:55 07/02/18 06:50 CMP Sodium 135 mmol/L (136-145) L 07/02/18 06:50 Potassium 5.0 mmol/L (3.5-5.1) 07/02/18 06:50 Chloride 99 mmol/L (98-107) 07/02/18 06:50 Carbon Dioxide 27 mmol/L (21-32) 07/02/18 06:50 Anion Gap 9 MMOL/L (8-16) 07/02/18 06:50 BUN 16 mg/dl (7-18) 07/02/18 06:50 Creatinine 0.9 mg/dl (0.55-1.3) 07/02/18 06:50 Creat Clearance w eGFR > 60 (>60) 07/02/18 06:50 Random Glucose 98 mg/dl (74-106) 07/02/18 06:50 Calcium 9.0 mg/dl (8.5-10) 07/02/18 06:50 Phosphorus 3.9 mg/dl (2.5-4.9) 07/02/18 06:50 Magnesium 2.6 mg/dL (1.8-2.4) H 07/02/18 06:50 Total Bilirubin 0.6 mg/dl (0.2-1) 07/02/18 06:50 AST 17 U/L (15-37) 07/02/18 06:50 ALT 13 U/L (13-61) 07/02/18 06:50 Alkaline Phosphatase 65 U/L (45-117) 07/02/18 06:50 Creatine Kinase 100 U/L (26-308) 07/02/18 06:50 Troponin I < 0.03 ng/ml (0.00-0.05) 07/02/18 06:50 Total Protein 5.8 g/dl (6.4-8.2) L 07/02/18 06:50 Albumin 3.0 g/dl (3.4-5.0) L 07/02/18 06:50 BUN/Cr down Mg, K up a bit - likely related to electrolyte solutions Problem List - Problems (1) Fecal impaction of colon Assessment/Plan: chronic constipation, now with pancolonic impaction started passing stool - anticipate more evacuation today pt to finish Golytely OOB/ambulation as able once abdominal distention resolves and he has had much more output, would confirm any residual stool burden in colon/rectum with AXR (tonight or tomorrow, depending on how empty he seems to get) recommend GI consult - pt never had colonoscopy, would benefit from scope once cleaned out before feeding again to r/o lesion or mass causing colonic obstruction could do tomorrow pm if clean by am/noon with clear output and AXR showing no residual stool burden? CEA pending trend labs watch lytes keep IVF/NPO except meds for now Tylenol prn for pain (iv or po) - avoid narcotics pt advised that he will need to increase non-caffeinated fluids in his usual diet after discharge, especially if using fiber supplements or miralax, and with continued heavy caffeine use discussed with Joana Vega Code(s): K56.41 - FECAL IMPACTION (2) Generalized abdominal pain Code(s): R10.84 - GENERALIZED ABDOMINAL PAIN (3) Hypertension Assessment/Plan: would hold HCTZ for now other home meds ok Code(s): I10 - ESSENTIAL (PRIMARY) HYPERTENSION Qualifiers: Hypertension type: essential hypertension Qualified Code(s): I10 - Essential (primary) hypertension (4) CAD (coronary artery disease) Code(s): I25.10 - ATHSCL HEART DISEASE OF [place] CORONARY ARTERY W/O ANG PCTRS Qualifiers: Coronary Disease-Associated Artery/Lesion type: [place] artery [place] vs. transplanted heart: [place] heart Associated angina: without angina Qualified Code(s): I25.10 - Atherosclerotic heart disease of [place] coronary artery without angina pectoris (5) COPD (chronic obstructive pulmonary disease) Code(s): J44.9 - CHRONIC OBSTRUCTIVE PULMONARY DISEASE, UNSPECIFIED Qualifiers: COPD type: emphysema Emphysema type: unspecified Qualified Code(s): J43.9 - Emphysema, unspecified
--- NOTE | 2018-07-02 16:57 | EKG ---
Test Reason : Blood Pressure : / mmHG Vent. Rate : 073 BPM Atrial Rate : 073 BPM P-R Int : 172 ms QRS Dur : 124 ms QT Int : 410 ms P-R-T Axes : 064 042 029 degrees QTc Int : 451 ms SINUS RHYTHM WITH OCCASIONAL PREMATURE VENTRICULAR COMPLEXES POSSIBLE LEFT ATRIAL ENLARGEMENT NON-SPECIFIC INTRA-VENTRICULAR CONDUCTION DELAY BORDERLINE ECG NO PREVIOUS ECGS AVAILABLE Confirmed by SANTINO MCKINLEY MD ([id number]) on 07/02/2018 4:57:46 PM Referred By: Theron Smith Confirmed By:SANTINO MCKINLEY MD
--- NOTE | 2018-07-02 16:58 | EKG ---
Test Reason : Blood Pressure : / mmHG Vent. Rate : 073 BPM Atrial Rate : 073 BPM P-R Int : 178 ms QRS Dur : 118 ms QT Int : 406 ms P-R-T Axes : 063 040 032 degrees QTc Int : 447 ms NORMAL SINUS RHYTHM LOW VOLTAGE QRS CANNOT RULE OUT ANTERIOR INFARCT , AGE UNDETERMINED ABNORMAL ECG NO PREVIOUS ECGS AVAILABLE Confirmed by ARLEN JULES, SANTINO ([id number]) on 07/02/2018 4:57:53 PM Referred By: Theron Smith Confirmed By:SANTINO MCKINLEY MD
[2018-07-02] MEDS: SODIUM CHLORIDE 1,000 ML IV SCH (17:48)
[2018-07-02] MEDS: ROSUVASTATIN CA 40 MG TABLET PO SCH (21:26)
[2018-07-02] MEDS: LISINOPRIL 5 MG TABLET (FP) PO SCH (21:26)
[2018-07-02] MEDS: EZETIMIBE 10 MG TABLET (FP) PO SCH (21:27)
[2018-07-03] MEDS ORDERED: ACETAMINOPHEN 325 MG TABLET (FP) ONE (02:02)
[2018-07-03] MEDS: ACETAMINOPHEN 325 MG TABLET (FP) PO PRN (02:03)
[2018-07-03] MEDS: DOCUSATE SODIUM 100 MG CAPSULE (FP) PO SCH ×2 (06:24→15:42)
[2018-07-03 07:46] LABS: ANION GAP 8 MMOL/L (8-16); BLOOD UREA NITROGEN 14 mg/dl (7-18); CALCIUM 8.7 mg/dl (8.5-10); CHLORIDE 101 mmol/L (98-107); CO2 27 mmol/L (21-32); CREATININE 0.9 mg/dl (0.55-1.3); GLUCOSE,RANDOM 93 mg/dl (74-106); MAGNESIUM 2.4 mg/dL (1.8-2.4); PHOSPHOROUS 3.8 mg/dl (2.5-4.9); POTASSIUM 4.3 mmol/L (3.5-5.1); SODIUM 136 mmol/L (136-145)
[2018-07-03] MEDS: ALBUTEROL SO4 0.083% IH SOL 2.5 MG/3 ML VIAL.NEB. NEB SCH ×3 (10:10→15:42)
[2018-07-03] MEDS: CYANOCOBALAMIN 1,000 MCG TABLET (FP) PO SCH (10:11)
[2018-07-03] MEDS: FLUTICASONE/SALMETEROL 100 MCG/50 MCG DISKUS IH SCH (10:11)
[2018-07-03] MEDS: TIOTROPIUM BROMIDE 2.5 MCG (SPIRIVA) RESPIMAT INHALER IH SCH (10:11)
[2018-07-03] MEDS: CHOLECALCIFEROL (VITAMIN D3) 1,000 UNIT TABLET (FP) PO SCH (10:30)
--- NOTE | 2018-07-03 11:03 | PN ---
Progress Note, Physician History of Present Illness: Pt with colon full of stool, impacted but not past mid-lower sigmoid. Had laxatives, enema with no real effect, and started on Golytely yesterday with good effect. No fevers, no nausea, no vomiting, no sig abd cramping. He is seen and examined sitting up in chair at bedside. He finished the first 4L of solution yesterday with multiple loose, muddy stools. Has almost finished a second 4L with continued effect, last stool still somewhat muddy. Still distended with gas, but no pain. Does still have some back discomfort. Has been ambulating. Per primary CORRECTIONAL COUNSELOR/CASE MANAGER, GI plans colonscopy this afternoon. AXR was taken this morning. - Current Medication List Current Medications: Active Medications Acetaminophen (Tylenol -) 650 mg PO Q6H PRN PRN Reason: FEVER Last Admin: 07/03/18 02:03 Dose: 650 mg Albuterol Sulfate (Ventolin 0.083% Nebulizer Soln -) 1 amp NEB RQID [facility] Last Admin: 07/03/18 10:10 Dose: 1 amp Aspirin (Asa -) 81 mg PO DAILY [facility] Last Admin: 07/02/18 10:28 Dose: 81 mg Cholecalciferol (Vitamin D3 -) 2,000 unit PO DAILY [facility] Last Admin: 07/02/18 10:28 Dose: 2,000 unit Cyanocobalamin (Vitamin B12 -) 1,000 mcg PO DAILY [facility] Last Admin: 07/03/18 10:11 Dose: 1,000 mcg Diltiazem HCl (Cardizem Cd -) 120 mg PO HS [facility] Last Admin: 07/02/18 21:27 Dose: 120 mg Docusate Sodium (Colace -) 100 mg PO TID [facility] Last Admin: 07/03/18 06:24 Dose: 100 mg Ezetimibe (Zetia -) 10 mg PO HS [facility] Last Admin: 07/02/18 21:27 Dose: 10 mg Sodium Chloride (Normal Saline -) 1,000 mls @ 100 mls/hr IV ASDIR [facility] Last Admin: 07/02/18 17:48 Dose: 100 mls/hr Lisinopril (Prinivil) 5 mg PO HS [facility] Last Admin: 07/02/18 21:26 Dose: 5 mg Rosuvastatin Calcium (Crestor -) 40 mg PO HS [facility] Last Admin: 07/02/18 21:26 Dose: 40 mg Fluticasone/Salmeterol (Advair 100mcg/50mcg -) 1 puff IH BID [facility] Last Admin: 07/03/18 10:11 Dose: 1 inh Senna (Senna -) 2 tab PO HS PRN PRN Reason: CONSTIPATION Last Admin: 07/01/18 22:42 Dose: 2 tab Tiotropium [place] (Spiriva Respimat) 2 puff IH DAILY [facility] Last Admin: 07/03/18 10:11 Dose: Not Given - Objective Vital Signs: Vital Signs Temperature 97.4 F L 07/03/18 06:00 Pulse Rate 77 07/03/18 06:00 Respiratory Rate 20 07/03/18 06:00 Blood Pressure 107/48 L 07/03/18 06:00 O2 Sat by Pulse Oximetry (%) 94 L 07/03/18 06:00 Constitutional: Yes: Well Nourished, No Distress, Calm Eyes: Yes: Conjunctiva Clear, EOM Intact HENT: Yes: Atraumatic, Normocephalic Gastrointestinal: Yes: Soft, Distention (tympanic throughout). No: Tenderness ...Rectal Exam: Yes: Deferred Extremities: No: Cool, Cyanosis Integumentary: Yes: Bruising (ecchymoses on arms). No: Jaundice, Rash Neurological: Yes: Alert, Oriented Labs: [facility] 07/03/18 06:49 Phos 3.8 Mg 2.4 lytes normal CEA 2.3 normal - ....Imaging X-ray: Report Reviewed, Image Reviewed (images personally reviewed - gas throughout SB and LB, some opacity in bladder, possibly rectum, but difficult to distinguish - minimal to no residual stool burden, redundant sigmoid) Problem List - Problems (1) Fecal impaction of colon Assessment/Plan: chronic constipation with pancolonic impaction significantly improved after Golytely, though stool still somewhat muddy per pt/ nurse now with gas in SB and colon abdomen less distended, softer OOB/ambulation as able GI plans colonoscopy for this afternoon probably ok for clears afterward, but would not feed yet today CEA and lytes normal keep IVF/NPO except meds until after scope Tylenol prn for pain (iv or po) - avoid narcotics pt advised that he will need to increase non-caffeinated fluids in his usual diet after discharge, and reduce caffeine use significantly - he admits to ~10 cups coffee daily, black, and little water he plans to try using prune juice more/daily to improve regularity suggested senna prn any night without BM in last 24 hrs at home will await results of colonoscopy discussed with Joana Vega Code(s): K56.41 - FECAL IMPACTION (2) Generalized abdominal pain Assessment/Plan: resolved Code(s): R10.84 - GENERALIZED ABDOMINAL PAIN (3) Hypertension Assessment/Plan: would hold HCTZ for now other home meds ok Code(s): I10 - ESSENTIAL (PRIMARY) HYPERTENSION Qualifiers: Hypertension type: essential hypertension Qualified Code(s): I10 - Essential (primary) hypertension (4) CAD (coronary artery disease) Code(s): I25.10 - ATHSCL HEART DISEASE OF [place] CORONARY ARTERY W/O ANG PCTRS Qualifiers: Coronary Disease-Associated Artery/Lesion type: [place] artery [place] vs. transplanted heart: [place] heart Associated angina: without angina Qualified Code(s): I25.10 - Atherosclerotic heart disease of [place] coronary artery without angina pectoris (5) COPD (chronic obstructive pulmonary disease) Code(s): J44.9 - CHRONIC OBSTRUCTIVE PULMONARY DISEASE, UNSPECIFIED Qualifiers: COPD type: emphysema Emphysema type: unspecified Qualified Code(s): J43.9 - Emphysema, unspecified
[2018-07-03] MEDS ORDERED: PROPOFOL 20 ML ONE ×4 (12:00)
--- NOTE | 2018-07-03 12:20 | PN ---
Physical Exam: SUBJECTIVE: Patient seen and examined oob to chair. Has passed a large amount of stool after GoLitely. Feels bloated from gas. Encouraged frequent ambulation. For colonoscopy today. OBJECTIVE: Vital Signs Period Temp Pulse Resp BP Sys/Robertson Pulse Ox Last 24 Hr 97.4 F-98.3 F 67-80 18-20 107-122/42-52 93-99 GENERAL: The patient is awake, alert, and fully oriented, in no acute distress. LUNGS: Breath sounds equal, clear to auscultation bilaterally, no wheezes, no crackles, no accessory muscle use. HEART: Regular rate and rhythm, S1, S2 ABDOMEN: Soft, tympanic, no tenderness, + bowel sounds EXTREMITIES: 2+ pulses, warm, well-perfused, no edema. NEUROLOGICAL: Cranial nerves II through XII grossly intact. Normal speech SKIN: Warm, dry, normal turgor Laboratory Results - last 24 hr 07/02/18 07/03/18 06:55 06:49 Sodium 136 Potassium 4.3 Chloride 101 Carbon Dioxide 27 Anion Gap 8 BUN 14 Creatinine 0.9 Creat Clearance w eGFR > 60 Random Glucose 93 Calcium 8.7 Phosphorus 3.8 Magnesium 2.4 Carcinoembryonic Ag 2.3 Active Medications Generic Name Dose Route Start Last Admin Trade Name Freq PRN Reason Stop Dose Admin Acetaminophen 650 mg 07/01/18 21:02 07/03/18 02:03 Tylenol - PO 650 mg Q6H PRN Administration FEVER Albuterol Sulfate 1 amp 07/01/18 21:15 07/03/18 10:10 Ventolin 0.083% Nebulizer Soln - NEB 1 amp RQID [facility] Administration Aspirin 81 mg 07/02/18 10:00 07/02/18 10:28 Asa - PO 81 mg DAILY [facility] Administration Cholecalciferol 2,000 unit 07/02/18 10:00 07/02/18 10:28 Vitamin D3 - PO 2,000 unit DAILY [facility] Administration Cyanocobalamin 1,000 mcg 07/02/18 10:00 07/03/18 10:11 Vitamin B12 - PO 1,000 mcg DAILY [facility] Administration Diltiazem HCl 120 mg 07/01/18 22:00 07/02/18 21:27 Cardizem Cd - PO 120 mg HS [facility] Administration Docusate Sodium 100 mg 07/01/18 22:00 07/03/18 06:24 Colace - PO 100 mg TID [facility] Administration Ezetimibe 10 mg 07/01/18 22:00 07/02/18 21:27 Zetia - PO 10 mg HS [facility] Administration Sodium Chloride 1,000 mls @ 100 mls/hr 07/01/18 16:30 07/02/18 17:48 Normal Saline - IV 100 mls/hr ASDIR [facility] Administration Lisinopril 5 mg 07/01/18 22:00 07/02/18 21:26 Prinivil PO 5 mg HS [facility] Administration Rosuvastatin Calcium 40 mg 07/01/18 22:45 07/02/18 21:26 Crestor - PO 40 mg HS [facility] Administration Fluticasone/Salmeterol 1 puff 07/01/18 22:00 07/03/18 10:11 Advair 100mcg/50mcg - IH 1 inh BID [facility] Administration Senna 2 tab 07/01/18 21:06 07/01/18 22:42 Senna - PO 2 tab HS PRN Administration CONSTIPATION Tiotropium [place] 2 puff 07/02/18 10:00 07/03/18 10:11 Spiriva Respimat IH Not Given DAILY [facility] ASSESSMENT/PLAN 73 year-old male with a PMH significant for HTN, CAD s/p CABG, COPD, and chronic constipation. Admitted for SBO. SBO --07/01 CTAP: moderate to large amount of fecal residue down to the mid- sigmoid; collapse of the mid sigmoid to rectosigmoid junction; ileus --significant passage of stool after Go-Lytely; today's abdominal film shows air throughout the colon --for colonoscopy later today with Dr. Simpson Hypertension --BP stable --coninue lisinopril CAD s/p CABG --continue diltiazem, Crestor, Zetia; ASA on hold COPD --duonebs. Spiriva FEN Fluids: NS@100mL/hr Electrolytes: replete as indicated Nutrition: NPO DVT prophylaxis: SCDs, oob, ambulation Dispo: continues to require inpatient care. Full code. Visit type - Emergency Visit Emergency Visit: Yes ED Registration Date: 07/01/18 Care time: The patient presented to the Emergency Department on the above date and was hospitalized for further evaluation of their emergent condition. - New Patient This patient is new to me today: No - Critical Care Critical Care patient: No
--- NOTE | 2018-07-03 13:24 | PN ---
Progress Note (short form) - Note Progress Note: Patient seen and chart/Xray studies reviewed with consult dictated. Patient to be scheduled for colonoscopy to evaluate recent ?bowel obstruction/ obstipation (no prior colonoscopy) Nulytely prep given; no N/V.
--- NOTE | 2018-07-03 13:28 | PN ---
Progress Note (short form) - Note Progress Note: Colonoscopy performed to cecum; report in chart. Prep fair with liquid stool throughout colon but no obstruction/mass noted. Colon redundant/tortuous and a few diverticuli were noted in the left colon. Rec: resume diet encourage PO liquids Miralax powder 17 gm PO daily or bid Stable for discharge from GI standpoint
[2018-07-03] MEDS ORDERED: SIMETHICONE 80 MG TAB.CHEW (FP) PO ONE (16:00)
[2018-07-03 18:25] VITALS: BP 114/46; PULSE 82; TEMP 98.4
--- NOTE | 2018-07-04 08:33 | CONS ---
DATE OF CONSULTATION: 07/03/2018 Asked to evaluate this 73-year-old gentleman with ? recent bowel obstruction versus ileus and obstipation. The patient has a history of hypertension, hyperlipidemia, coronary artery disease and COPD. He also has a history of chronic constipation. The patient presented with 10 days of constipation, increased abdominal distention with pain and was seen at the time of admission by the emergency room doctor and by Surgery. The patient had a workup including a CAT scan of the abdomen and pelvis which was consistent with a moderate to large amount of fecal residue with an open distended colon. There was a question of whether there might be an area of transition in the sigmoid colon. The patient's hospital course is notable for treatment with IV fluids and also his inhalers for COPD. He also underwent a prep including NuLYTELY with plans for a colonoscopy. The progressive abdominal x-rays showed somewhat of an improvement in his abdominal distention and pain. The patient has had difficulty in terms of good results of having a bowel movement with laxatives and enemas. PHYSICAL EXAMINATION: General: The patient is a well-developed, well-nourished gentleman. He is sitting in a chair breathing with an inhaler. He states that his abdominal pain has largely subsided at the present time, having had the NuLYTELY prep. He states he has not had a colonoscopy in the past. He has no known history of colitis and denies any family history of GI illness or malignancy. Alert and oriented. Lungs: Grossly clear bilaterally. Cardiac: A regular rate and rhythm. Abdomen: Moderately distended with bowel sounds present and no pain or mass. Patient with chronic constipation and likely bowel obstruction recently due to stool impaction ? high up. Agree with current plans of IV fluids and patient having received a GoLYTELY prep. Will arrange for colonoscopy to exclude any lower GI tract pathology with recommendations to follow. Will likely need to be on chronic laxative regimen including MiraLAX. Recommendations to follow colonoscopy findings. CATRACHO RAINES M.D. [facility]/[id number]
== END 2018-07-03 18:37 | disposition home or self-care (01) | DRG 389 ==
LOC: FER 09:10 → FM/S 16:17 → UNDOADMOB 16:17 → OBSVTOIN 21:02 → FM/S 21:02 → OBSVTOIN 07-02 02:26 → INTOOBSV 07-02 02:26
PROVIDERS: ADMIT Internal Medicine; ATTEND Nurse Practitioner Acute Care
PROC: 0DJD8ZZ Inspection of Lower Intestinal Tract, Via Natural or Artificial Opening Endoscopic (ICD-10-PCS; principal; 2018-07-03 12:18)
DX: K56.41 Fecal impaction (principal); E87.1 Hypo-osmolality and hyponatremia; J43.9 Emphysema, unspecified; I10 Essential (primary) hypertension; K57.30 Diverticulosis of large intestine without perforation or abscess without bleeding; K64.4 Residual hemorrhoidal skin tags; I25.10 Atherosclerotic heart disease of native coronary artery without angina pectoris; I48.91 Unspecified atrial fibrillation; Z87.891 Personal history of nicotine dependence; Z95.1 Presence of aortocoronary bypass graft; I25.2 Old myocardial infarction; Z99.81 Dependence on supplemental oxygen; N40.0 Benign prostatic hyperplasia without lower urinary tract symptoms
CPT/HCPCS: 36415; 71045-TC-FY; 74018-TC-FY; 74019-TC-FY; 74177-TC; 80048; 80053; 81003; 82272; 82378; 82550; 83735; 84100; 84484; 85025; 93005; 93306-TC; 94640; 99284-25; G0378; J7030

== ENCOUNTER 2018-07-09 14:55 | Observation (INO) | payer OTHER, MEDICARE ==
--- NOTE | 2018-07-09 15:34 | PDOC ---
History of Present Illness - General Chief Complaint: Pain Stated Complaint: ABD PAIN Time Seen by Provider: 07/09/18 15:04 History Source: Patient Exam Limitations: No Limitations - History of Present Illness Travel History: No Initial Comments: 07/09/18 15:29 73y M hx of CAD s/ CABG, htn, HL, copd recent ED evaluation on 07/01 and admission for constipation with psosible obstruction and dilated colon to 8.5cm , had a colonscopy as an inpatient and subsequently discharged. Pt notse that since discharge he has felt persistently 'bloated' but denies evi pain. Notes he has had several small BMs that is watery with some soft stool. Denies any fever/chills, nausea/vomiting, cp, sob, blood per rectum, dysuria, frequency, diaphoresis.. endorses passing gas from above and below. Pt also notse some back pain, but notse the back pain is crhonic for him. no associated numness/tngling/weakness. has been using miralax and prune juice. had discussed with GI who recommended doubling the dose of miralax. Surgical hx: sp quadruple bypass Social history: Lives independently, cares for himself, daughter and son-in-law nearby, denies tobacco alcohol or nonprescription drugs. Ambulatory and moderately active Family history: Reviewed and noncontributory including early coronary artery disease, metabolic disease including diabetes, GI disease, cancer Past History - Past Medical History Allergies/Adverse Reactions: Allergies Allergy/AdvReac Type Severity Reaction Status Date / Time No Known Allergies Allergy Verified 07/09/18 15:17 Home Medications: Ambulatory Orders Albuterol Sulfate 0.5% [Ventolin 0.5% Nebulizing Soln. -] 1 amp NEB TID Aspirin [ASA -] 81 mg PO DAILY 07/01/18 Diltiazem Cd [Cardizem Cd -] 120 mg PO HS 07/01/18 Ezetimibe [Zetia -] 10 mg PO HS 07/01/18 Lisinopril [Prinivil] 5 mg PO HS 07/01/18 Salmeterol/Fluticasone [Advair 100Mcg/50Mcg -] 1 inh PO BID 07/01/18 Tiotropium [place] [Spiriva] 18 mcg IH HS 07/01/18 Polyethylene Glycol 3350 [Miralax (For Daily Use) -] 17 gm PO BID #1 bottle 05/23 Acetaminophen [Tylenol Extra Strength] 1,000 mg PO TID PRN 07/09/18 Hydrochlorothiazide 12.5 mg PO HS 07/09/18 Linaclotide [Linzess] 145 mcg PO DAILY #30 cap 07/09/18 Rosuvastatin [Crestor -] 40 mg PO HS 07/09/18 Cardiac Disorders: Yes ([facility]) COPD: Yes GI Disorders: Yes (CHRONIC CONSTIPATION) HTN: Yes Hypercholesterolemia: Yes - Surgical History Cardiac Surgery: Yes ([facility]) - Suicide/Smoking/Psychosocial Hx Smoking History: Former smoker Have you smoked in the past 12 months: No If you are a former smoker, when did you quit?: quit 2009 - 3ppd x 40 yrs Information on smoking cessation initiated: No Hx Alcohol Use: No Drug/Substance Use Hx: No Review of Systems - Review of Systems Able to Perform ROS?: Yes Comments:: 07/09/18 15:52 ROS: General: denies generalized weakness, fever/chills, endorses losss of appetite Chest: denies cp, palpitations PULM: denies cough, sob, andrews ABD: endorses bloating, constipation denies evi pain, nausea/vomiting, diarrhea, melena bpr EXT: denies leg swelling HEME: denies bleeding/bruising rest of systems negative except as otherwise noted above *Physical Exam - Vital Signs Last Vital Signs Temp Pulse Resp BP Pulse Ox 98.3 F 73 20 105/63 94 L 07/09/18 14:56 07/09/18 14:56 07/09/18 14:56 07/09/18 14:56 07/09/18 14:56 - Physical Exam Comments: 07/09/18 15:52 Physical exam: Alert oriented 3 no acute distress cooperative Vitals reviewed: Afebrile, vital signs normal HEENT: No pallor or icterus. PERRLA, ENT clear NECK: supple without bruit mass or nodes Chest: CTA b/l, no wheezes/rales HEART: RRR, no mrg, pulses symmetric b/l EXT: no edema, no calf tenderness, several old contusions NEURO: moving all 4 extremities spontaneously and symmetrically ABD: soft nontender, midlly distended, no reboundguarding,no cva tendeness Moderate Sedation - Procedure Monitoring Vital Signs: Procedure Monitoring Vital Signs Temperature 98.3 F 07/09/18 14:56 Pulse Rate 73 07/09/18 14:56 Respiratory Rate 20 07/09/18 14:56 Blood Pressure 105/63 07/09/18 14:56 O2 Sat by Pulse Oximetry (%) 94 L 07/09/18 14:56 ED Treatment Course - LABORATORY CBC & Chemistry Diagram: 07/09/18 16:05 07/09/18 16:05 Medical Decision Making - Medical Decision Making 07/09/18 15:53 73y M hx of [facility] medical problems represents with abd bloating s/p constiaption requiring hosptialization and undergoing a colonscopy by Dr. Simpson. no associated vomiting. suspect ileus wo vomiting or abd pain will obtain basic labs abd xray will dw dr. simpson - perhaps a pro motility agent would help him 07/09/18 17:54 case cat simpson recommended promotility agent such as linzess and rectal tube xray abd noted for signifciant air distension and some air fluid levels, but pt has no clinical signs of obstruction - would like to defer repeat CT as pt clinically has no signs of obstruction 07/09/18 18:15 *DC/Admit/Observation/Transfer Diagnosis at time of Disposition: Constipation by delayed colonic transit, Hyponatremia - Discharge Dispostion Condition at time of disposition: Stable - Prescriptions Prescriptions: Linaclotide [Linzess] 145 mcg PO DAILY #30 cap - Referrals Referrals: Evi Gonzáles [Primary Care Provider] - - Patient Instructions - Post Discharge Activity
[2018-07-09 16:26] LABS: MCHC 31.5 g/dl (32.0-35.9); RBC 3.82 M/mm3 (4.00-5.60)
[2018-07-09 16:34] LABS: BASO % 0.6 % (0-2.0); EOS % 0.7 % (0-4.5); HEMATOCRIT 31.8 % (35.4-49); LYMPH % 6.5 % (8-40); MCH 26.2 pg (25.7-33.7); MEAN CELL VOLUME 83.4 fl (80-96); MEAN PLT VOLUME 7.2 fl (7.5-11.1); MONO % 7.7 % (3.8-10.2); NEUT % 84.5 % (42.8-82.8); PLATELET COUNT 399 K/MM3 (134-434); RDW 16.1 % (11.9-15.9); WHITE BLOOD COUNT 10.2 K/mm3 (4.0-10.8)
[2018-07-09 16:45] LABS: ALK PHOS 67 U/L (45-117); ANION GAP 8 MMOL/L (8-16); BILIRUBIN,TOTAL 0.4 mg/dl (0.2-1); BLOOD UREA NITROGEN 15 mg/dl (7-18); CALCIUM 8.4 mg/dl (8.5-10); CHLORIDE 96 mmol/L (98-107); CO2 25 mmol/L (21-32); GLUCOSE,RANDOM 109 mg/dl (74-106); POTASSIUM 4.5 mmol/L (3.5-5.1); SGOT/AST 27 U/L (15-37); SGPT/ALT 21 U/L (13-61); SODIUM 129 mmol/L (136-145); TOT PROT 5.8 g/dl (6.4-8.2)
[2018-07-09] MEDS ORDERED: ACETAMINOPHEN 325 MG TABLET (FP) PO ONE (17:14)
[2018-07-09] MEDS ORDERED: ACETAMINOPHEN 325 MG TABLET (FP) ONE (17:41)
[2018-07-09] MEDS ORDERED: METOCLOPRAMIDE HCL 10 MG TABLET (FP) PO ONE ×2 (17:50→17:55)
--- NOTE | 2018-07-09 20:06 | PDOC ---
*Physical Exam - Vital Signs Last Vital Signs Temp Pulse Resp BP Pulse Ox 98.3 F 73 20 105/63 94 L 07/09/18 14:56 07/09/18 14:56 07/09/18 14:56 07/09/18 14:56 07/09/18 14:56 ED Treatment Course - LABORATORY CBC & Chemistry Diagram: 07/09/18 16:05 07/09/18 16:05 - ADDITIONAL ORDERS Additional order review: Laboratory Results 07/09/18 16:05 Sodium 129 L Potassium 4.5 Chloride 96 L Carbon Dioxide 25 Anion Gap 8 BUN 15 Creatinine 1.0 Creat Clearance w eGFR > 60 Random Glucose 109 H Calcium 8.4 L Total Bilirubin 0.4 AST 27 ALT 21 Alkaline Phosphatase 67 Total Protein 5.8 L Albumin 3.0 L 07/09/18 16:05 RBC 3.82 L MCV 83.4 MCHC 31.5 L RDW 16.1 H MPV 7.2 L Neutrophils % 84.5 H Lymphocytes % 6.5 L Monocytes % 7.7 Eosinophils % 0.7 Basophils % 0.6 - Medications Given in the ED: ED Medications Discontinued Medications Generic Name Dose Route Start Last Admin Trade Name Freq PRN Reason Stop Dose Admin Acetaminophen 650 mg 07/09/18 17:14 07/09/18 17:40 Tylenol - PO 07/09/18 17:15 650 mg ONCE ONE Administration Metoclopramide HCl 10 mg 07/09/18 17:50 07/09/18 17:55 Reglan - PO 07/09/18 17:51 10 mg ONCE ONE Administration Progress Note - Progress Note Progress Note: Care of this patient was transferred to [place] from Dr. hein at 1900 hrs. Patient is a 73-year-old male who comes in complaining of abdominal discomfort and bloating.] Patient has a history of chronic constipation and GI for motility issues. Patient was here within the last week for severe constipation that required removal of a large amount of stool. Since discharge patient said he has not had a significant bowel movement but has had a small amount of liquid stool. Patient's abdominal x-ray shows multiple dilated loops of bowel with some air- fluid levels however there is a similar picture to when he was here several days ago. Dr. hein discussed the case with Dr. Simpson who recommended that we put in a rectal tube decompress him overnight and reevaluate him and Dr. Simpson will see him tomorrow if need be. Otherwise patient also has some mild hyponatremia that will be corrected overnight. *DC/Admit/Observation/Transfer Diagnosis at time of Disposition: Constipation by delayed colonic transit, Hyponatremia - Discharge Dispostion Condition at time of disposition: Stable - Prescriptions - Referrals - Patient Instructions - Post Discharge Activity
--- NOTE | 2018-07-09 20:12 | HP ---
Admitting History and Physical - Primary Care Physician PCP: Robert Gonzáles - Admission Chief Complaint: Bloating, Watery Stool History of Present Illness: This is a 73 y/o man with a past medical history of Chronic Constipation, CAD s/ p Bypass, HTN, HLD, COPD, last admission 07/01 Constipation, ?Obstruction s/p Colonoscopy. Who presents to the ED with bloating and watery stool. Patient reports after being discharged he has been taking Miralax daily and has not had formed stools. Today he reports having 2 BMs of brown not formed watery stool. Patient reports having abdominal distention with back pain. Patient denies fever , chills, cough, dizziness, headache, SOB, CP, palpitations, N/V, melena, hematochezia, dysuria, hematuria. ER course was notable for: (1) Abdominal Xray- Dilated loops, air distention. 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 COVERER: Yes: Other (insomnia) Cardiovascular: Yes: CAD, HTN, Hyperlipdemia, HI (silent ones) Pulmonary: Yes: COPD, O2 Dependent (3L at night) Gastrointestinal: Yes: Constipation Renal/: Yes: BPH - Past Surgical History Past Surgical History: Yes: CABG (x4 2009), Colonoscopy (sigmoidoscopy only once years ago) - Smoking History Smoking history: Former smoker Have you smoked in the past 12 months: No If you are a former smoker, when did you quit?: quit 2009 - 3ppd x 40 yrs - Alcohol/Substance Use Hx Alcohol Use: No History of Substance Use: reports: None (drinks a lot of caffeine and very little water) - Social History Usual Living Arrangement: Yes: With Spouse ADL: Independent 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 -] 1 amp NEB TID Aspirin [ASA -] 81 mg PO DAILY 07/01/18 Diltiazem Cd [Cardizem Cd -] 120 mg PO HS 07/01/18 Ezetimibe [Zetia -] 10 mg PO HS 07/01/18 Lisinopril [Prinivil] 5 mg PO HS 07/01/18 Salmeterol/Fluticasone [Advair 100Mcg/50Mcg -] 1 inh PO BID 07/01/18 Tiotropium Jackson [Spiriva] 18 mcg IH HS 07/01/18 Polyethylene Glycol 3350 [Miralax (For Daily Use) -] 17 gm PO BID #1 bottle 05/23 Acetaminophen [Tylenol Extra Strength] 1,000 mg PO TID PRN 07/09/18 Hydrochlorothiazide 12.5 mg PO HS 07/09/18 Linaclotide [Linzess] 145 mcg PO DAILY #30 cap 07/09/18 Rosuvastatin [Crestor -] 40 mg PO HS 07/09/18 Family Disease History - Family Disease History Family Disease History: Other: Father ( (75) unknown cause), Mother ( (75) HI), Sister (Alive (71) DMII) Review of Systems - Review of Systems Constitutional: reports: Loss of Appetite Eyes: reports: No Symptoms HENT: reports: No Symptoms Neck: reports: No Symptoms Cardiovascular: reports: No Symptoms Respiratory: reports: No Symptoms Gastrointestinal: reports: Bloating, Diarrhea Genitourinary: reports: No Symptoms Breasts: reports: No Symptoms Reported Musculoskeletal: reports: Back Pain Integumentary: reports: No Symptoms Neurological: reports: No Symptoms Endocrine: reports: No Symptoms Hematology/Lymphatic: reports: No Symptoms Psychiatric: reports: No Symptoms Physical Examination Vital Signs: Vital Signs Temperature 98.3 F 07/09/18 14:56 Pulse Rate 73 07/09/18 14:56 Respiratory Rate 20 07/09/18 14:56 Blood Pressure 105/63 07/09/18 14:56 O2 Sat by Pulse Oximetry (%) 94 L 07/09/18 14:56 Constitutional: Yes: No Distress, Calm Eyes: Yes: WNL, Conjunctiva Clear, EOM Intact, PERRL HENT: Yes: WNL, Atraumatic, Normocephalic Neck: Yes: WNL, Supple, Trachea Midline Cardiovascular: Yes: Regular Rate and Rhythm, Murmur, S1, S2 Respiratory: Yes: Regular, CTA Bilaterally Gastrointestinal: Yes: Distention, Hypoactive Bowel Sounds Renal/: Yes: WNL Breast(s): Yes: WNL Musculoskeletal: Yes: WNL Extremities: Yes: WNL Edema: No Peripheral Pulses WNL: Yes Neurological: Yes: WNL, Alert, Oriented, Cran Nerves II-XII Intact ...Motor Strength: WNL Psychiatric: Yes: WNL, Alert, Oriented Labs: CBC, BMP 07/09/18 16:05 07/09/18 16:05 Laboratory Results - last 24 hr 07/09/18 07/09/18 16:05 16:05 WBC 10.2 RBC 3.82 L Hgb 10.0 L Hct 31.8 L MCV 83.4 MCH 26.2 MCHC 31.5 L RDW 16.1 H Plt Count 399 MPV 7.2 L Absolute Neuts (auto) 8.5 Neutrophils % 84.5 H Lymphocytes % 6.5 L Monocytes % 7.7 Eosinophils % 0.7 Basophils % 0.6 Sodium 129 L Potassium 4.5 Chloride 96 L Carbon Dioxide 25 Anion Gap 8 BUN 15 Creatinine 1.0 Creat Clearance w eGFR > 60 Random Glucose 109 H Calcium 8.4 L Total Bilirubin 0.4 AST 27 ALT 21 Alkaline Phosphatase 67 Total Protein 5.8 L Albumin 3.0 L Intake & Output 07/06/18 07/07/18 07/08/18 07/09/18 23:59 23:59 23:59 23:59 Weight 73.284 kg Current Medications Generic Name Dose Route Start Last Admin Trade Name Freq PRN Reason Stop Dose Admin Albuterol Sulfate 1 amp 07/10/18 08:00 Ventolin 0.083% Nebulizer Soln - NEB RTID ALBINA Diltiazem HCl 120 mg 07/09/18 22:00 07/09/18 22:35 Cardizem Cd - PO 120 mg HS ALBINA Administration Ezetimibe 10 mg 07/09/18 22:00 07/09/18 22:36 Zetia - PO 10 mg HS ALBINA Administration Sodium Chloride 1,000 mls @ 42 mls/hr 07/09/18 20:15 07/09/18 20:30 Normal Saline - IV 42 mls/hr ASDIR ALBINA Administration Lisinopril 5 mg 07/09/18 22:00 07/09/18 22:36 Prinivil PO 5 mg HS ALBINA Administration Rosuvastatin Calcium 40 mg 07/09/18 22:00 07/09/18 22:36 Crestor - PO 40 mg HS ALBINA Administration Fluticasone/Salmeterol 1 puff 07/09/18 22:00 Advair 100mcg/50mcg - IH BID ALBINA Tiotropium Jackson 2 puff 07/10/18 10:00 Spiriva Respimat IH DAILY ALBINA Imaging - Results X-ray: Report Reviewed, Image Reviewed EKG: Image Reviewed Problem List - Problems (1) Constipation by delayed colonic transit Assessment/Plan: Abd Xray- dilated loops, air distention, no free air, no obstruction Appreciate GI consult Rectal tube placed in ED per RN scant liquid stool- removed in ED Clear Diet Monitor lytes Monitor vitals Code(s): K59.01 - SLOW TRANSIT CONSTIPATION (2) Hyponatremia Assessment/Plan: Likely secondary to diazide vs dehydration Will hold HCTZ NS@42ml/hr Repeat BMP in am NA deficit 429.8 meq Goal 6-8meq/24 hrs Seizure Precautions Fall precautions Monitor vitals Code(s): E87.1 - HYPO-OSMOLALITY AND HYPONATREMIA (3) CAD (coronary artery disease) Assessment/Plan: stable denies CP or SOB EKG- SR with occasional PVCs. septal infarct age undetermined Continue home meds Code(s): I25.10 - ATHSCL HEART DISEASE OF [place] CORONARY ARTERY W/O ANG PCTRS Qualifiers: Coronary Disease-Associated Artery/Lesion type: [place] artery [place] vs. transplanted heart: [place] heart Associated angina: without angina Qualified Code(s): I25.10 - Atherosclerotic heart disease of [place] coronary artery without angina pectoris (4) COPD (chronic obstructive pulmonary disease) Assessment/Plan: stable no acute flare Continue Spirva, Advair Continue Albuterol neb O2- 3LNC HS Peak flow BID Code(s): J44.9 - CHRONIC OBSTRUCTIVE PULMONARY DISEASE, UNSPECIFIED Qualifiers: COPD type: emphysema Emphysema type: unspecified Qualified Code(s): J43.9 - Emphysema, unspecified (5) Hypertension Assessment/Plan: stable Continue Lisinopril, Cardizem Hold HCTZ secondary to Hyponatremia Monitor BP Monitor renal function Code(s): I10 - ESSENTIAL (PRIMARY) HYPERTENSION Qualifiers: Hypertension type: essential hypertension Qualified Code(s): I10 - Essential (primary) hypertension Assessment/Plan This is a 73 y/o man with a PMHx of: Chronic Constipation s/p colonoscopy, CAD s /p 4 vessel Bypass, HTN, HLD, COPD. Placed in Observation for Constipation, Hyponatremia for further evaluation of their emergent condition. Plan: See Problem List FEN NS@42ml/hr Replete lytes prn Clear Liquid Diet DVT ppx OOB SCDs Code Status: Full Code Dispo: Observation Visit type - Emergency Visit Emergency Visit: Yes ED Registration Date: 07/09/18 Care time: The patient presented to the Emergency Department on the above date and was hospitalized for further evaluation of their emergent condition. - New Patient This patient is new to me today: Yes Date on this admission: 07/09/18 - Critical Care Critical Care patient: No
[2018-07-09] MEDS ORDERED: SODIUM CHLORIDE 1,000 ML IV SCH (20:15)
[2018-07-09] MEDS ORDERED: LISINOPRIL 5 MG TABLET (FP) PO SCH (22:00)
[2018-07-09] MEDS ORDERED: EZETIMIBE 10 MG TABLET (FP) PO SCH (22:00)
[2018-07-09] MEDS ORDERED: ROSUVASTATIN CA 40 MG TABLET PO SCH (22:00)
[2018-07-09 22:57] VITALS: BMI 24.5
[2018-07-10] MEDS: ACETAMINOPHEN 500 MG TABLET (FP) PO PRN ×3 (00:03→14:18)
[2018-07-10] MEDS: FLUTICASONE/SALMETEROL 100 MCG/50 MCG DISKUS IH SCH ×2 (00:04→10:00)
[2018-07-10] MEDS: ALBUTEROL SO4 0.083% IH SOL 2.5 MG/3 ML VIAL.NEB. NEB SCH ×2 (07:45→14:05)
[2018-07-10 07:51] LABS: ANION GAP 7 MMOL/L (8-16); BLOOD UREA NITROGEN 13 mg/dl (7-18); CALCIUM 8.5 mg/dl (8.5-10); CHLORIDE 101 mmol/L (98-107); CO2 26 mmol/L (21-32); GLUCOSE,RANDOM 102 mg/dl (74-106); POTASSIUM 4.4 mmol/L (3.5-5.1); SODIUM 134 mmol/L (136-145)
[2018-07-10 07:54] LABS: BASO % 0.3 % (0-2.0); EOS % 0.8 % (0-4.5); LYMPH % 5.6 % (8-40); MCH 26.8 pg (25.7-33.7); MCHC 32.3 g/dl (32.0-35.9); MEAN CELL VOLUME 82.9 fl (80-96); MEAN PLT VOLUME 7.2 fl (7.5-11.1); MONO % 9.2 % (3.8-10.2); NEUT % 84.1 % (42.8-82.8); PLATELET COUNT 401 K/MM3 (134-434); RBC 3.73 M/mm3 (4.00-5.60); RDW 15.7 % (11.9-15.9); WHITE BLOOD COUNT 12.7 K/mm3 (4.0-10.8)
[2018-07-10] MEDS ORDERED: SODIUM CHLORIDE 1,000 ML IV SCH (09:30)
[2018-07-10] MEDS ORDERED: SIMETHICONE 80 MG TAB.CHEW (FP) PO PRN (09:35)
[2018-07-10] MEDS ORDERED: PT OWN MED DRAWER 7, Y5N ONE (09:41)
[2018-07-10] MEDS ORDERED: TIOTROPIUM BROMIDE 2.5 MCG (SPIRIVA) RESPIMAT INHALER IH SCH (10:00)
--- NOTE | 2018-07-10 13:41 | PN ---
Physical Exam: SUBJECTIVE: Patient seen and examined OBJECTIVE: Vital Signs Period Temp Pulse Resp BP Sys/Robertson Pulse Ox Last 24 Hr 98 F-98.3 F 70-73 18-20 105-117/50-63 94-100 GENERAL: The patient is awake, alert, and fully oriented, in no acute distress. HEAD: Normal with no signs of trauma. EYES: PERRL, extraocular movements intact, sclera anicteric, conjunctiva clear. No ptosis. ENT: Ears normal, nares patent, oropharynx clear without exudates, moist mucous membranes. NECK: Trachea midline, full range of motion, supple. LUNGS: Breath sounds equal, clear to auscultation bilaterally, no wheezes, no crackles, no accessory muscle use. HEART: Regular rate and rhythm, S1, S2 without murmur, rub or gallop. ABDOMEN: Soft, nontender, nondistended, normoactive bowel sounds, no guarding, no rebound, no hepatosplenomegaly, no masses. EXTREMITIES: 2+ pulses, warm, well-perfused, no edema. NEUROLOGICAL: Cranial nerves II through XII grossly intact. Normal speech, gait not observed. PSYCH: Normal mood, normal affect. SKIN: Warm, dry, normal turgor, no rashes or lesions noted Laboratory Results - last 24 hr 07/09/18 07/09/18 07/10/18 16:05 16:05 07:31 WBC 10.2 12.7 H RBC 3.82 L 3.73 L Hgb 10.0 L 10.0 L Hct 31.8 L 31.0 L MCV 83.4 82.9 MCH 26.2 26.8 MCHC 31.5 L 32.3 RDW 16.1 H 15.7 Plt Count 399 401 MPV 7.2 L 7.2 L Absolute Neuts (auto) 8.5 10.7 Neutrophils % 84.5 H 84.1 H Lymphocytes % 6.5 L 5.6 L Monocytes % 7.7 9.2 Eosinophils % 0.7 0.8 Basophils % 0.6 0.3 Sodium 129 L Potassium 4.5 Chloride 96 L Carbon Dioxide 25 Anion Gap 8 BUN 15 Creatinine 1.0 Creat Clearance w eGFR > 60 Random Glucose 109 H Calcium 8.4 L Total Bilirubin 0.4 AST 27 ALT 21 Alkaline Phosphatase 67 Total Protein 5.8 L Albumin 3.0 L 07/10/18 07:31 WBC RBC Hgb Hct MCV MCH MCHC RDW Plt Count MPV Absolute Neuts (auto) Neutrophils % Lymphocytes % Monocytes % Eosinophils % Basophils % Sodium 134 L Potassium 4.4 Chloride 101 Carbon Dioxide 26 Anion Gap 7 L BUN 13 Creatinine 1.0 Creat Clearance w eGFR > 60 Random Glucose 102 Calcium 8.5 Total Bilirubin AST ALT Alkaline Phosphatase Total Protein Albumin Active Medications Generic Name Dose Route Start Last Admin Trade Name Freq PRN Reason Stop Dose Admin Acetaminophen 500 mg 07/09/18 23:42 07/10/18 07:45 Tylenol - PO 500 mg Q6H PRN Administration PAIN LEVEL 1 - 3 Albuterol Sulfate 1 amp 07/10/18 08:00 07/10/18 07:45 Ventolin 0.083% Nebulizer Soln - NEB 1 amp RTID ALBINA Administration Diltiazem HCl 120 mg 07/09/18 22:00 07/09/18 22:35 Cardizem Cd - PO 120 mg HS ALBINA Administration Ezetimibe 10 mg 07/09/18 22:00 07/09/18 22:36 Zetia - PO 10 mg HS ALBINA Administration Sodium Chloride 1,000 mls @ 100 mls/hr 07/10/18 09:30 07/10/18 10:03 Normal Saline - IV 100 mls/hr ASDIR ALBINA Administration Lisinopril 5 mg 07/09/18 22:00 07/09/18 22:36 Prinivil PO 5 mg HS ALBINA Administration Rosuvastatin Calcium 40 mg 07/09/18 22:00 07/09/18 22:36 Crestor - PO 40 mg HS ALBINA Administration Fluticasone/Salmeterol 1 puff 07/09/18 22:00 07/10/18 10:00 Advair 100mcg/50mcg - IH 1 puff BID ALBINA Administration Simethicone 80 mg 07/10/18 13:30 Mylicon - PO Q4H ALBINA Tiotropium Bradley 2 puff 07/10/18 10:00 07/10/18 10:00 Spiriva Respimat IH 2 puff DAILY ALBINA Administration ASSESSMENT/PLAN: 73 year-old male with a PMH significant for HTN, CAD s/p CABG, COPD, and chronic constipation. Recently at [facility] for SBO/ileus 07/01-07/03/18. Abdominal bloating and distension --hospitalized here at [facility] from 07/01-07/03 for SBO/ileus; underwent colonoscopy on 07/[address] Simpson, only finding mild diverticulosis --abd xray shows air distension --patient has been walking, passing flatus, feels better --simethicone Hypertension --BP stable --coninue lisinopril CAD s/p CABG --continued diltiazem, Crestor, Zetia, ASA COPD --renay Claire FEN Fluids: NS@100mL/hr Electrolytes: replete as indicated Nutrition: NPO DVT prophylaxis: SCDs, oob, ambulation Dispo: continues to require inpatient care. Full code.
--- NOTE | 2018-07-10 13:51 | EKG ---
Test Reason : Blood Pressure : / mmHG Vent. Rate : 078 BPM Atrial Rate : 078 BPM P-R Int : 178 ms QRS Dur : 114 ms QT Int : 386 ms P-R-T Axes : 065 052 054 degrees QTc Int : 440 ms SINUS RHYTHM WITH OCCASIONAL PREMATURE VENTRICULAR COMPLEXES POSSIBLE LEFT ATRIAL ENLARGEMENT SEPTAL INFARCT (CITED ON OR BEFORE 01-JUL-2018) NON-SPECIFIC INTRA-VENTRICULAR CONDUCTION DELAY ABNORMAL ECG Confirmed by KARTHIKEYAN AGUILAR MD ([id number]) on 07/10/2018 1:51:02 PM Referred By: DR BEY Confirmed By:KARTHIKEYAN AGUILAR MD
--- NOTE | 2018-07-10 13:52 | DS ---
Physical Exam: SUBJECTIVE: Patient seen and examined at bedside. Complains of abdominal discomfort. OBJECTIVE: Vital Signs Period Temp Pulse Resp BP Sys/Robertson Pulse Ox Last 24 Hr 98 F-98.3 F 70-73 18-20 105-117/50-63 94-100 PHYSICAL EXAM GENERAL: The patient is awake, alert, and fully oriented, in no acute distress LUNGS: Breath sounds equal, clear to auscultation bilaterally, no wheezes, no crackles, no accessory muscle use. HEART: Regular rate and rhythm, S1, S2 without murmur, rub or gallop. ABDOMEN: Soft, not tender, mildly distended, +bowel sounds x 4 EXTREMITIES: 2+ pulses, warm, well-perfused, no edema. NEUROLOGICAL: Cranial nerves II through XII grossly intact. Normal speech, steady gait observed. LABS Laboratory Results - last 24 hr 07/09/18 07/09/18 07/10/18 16:05 16:05 07:31 WBC 10.2 12.7 H RBC 3.82 L 3.73 L Hgb 10.0 L 10.0 L Hct 31.8 L 31.0 L MCV 83.4 82.9 MCH 26.2 26.8 MCHC 31.5 L 32.3 RDW 16.1 H 15.7 Plt Count 399 401 MPV 7.2 L 7.2 L Absolute Neuts (auto) 8.5 10.7 Neutrophils % 84.5 H 84.1 H Lymphocytes % 6.5 L 5.6 L Monocytes % 7.7 9.2 Eosinophils % 0.7 0.8 Basophils % 0.6 0.3 Sodium 129 L Potassium 4.5 Chloride 96 L Carbon Dioxide 25 Anion Gap 8 BUN 15 Creatinine 1.0 Creat Clearance w eGFR > 60 Random Glucose 109 H Calcium 8.4 L Total Bilirubin 0.4 AST 27 ALT 21 Alkaline Phosphatase 67 Total Protein 5.8 L Albumin 3.0 L 07/10/18 07:31 WBC RBC Hgb Hct MCV MCH MCHC RDW Plt Count MPV Absolute Neuts (auto) Neutrophils % Lymphocytes % Monocytes % Eosinophils % Basophils % Sodium 134 L Potassium 4.4 Chloride 101 Carbon Dioxide 26 Anion Gap 7 L BUN 13 Creatinine 1.0 Creat Clearance w eGFR > 60 Random Glucose 102 Calcium 8.5 Total Bilirubin AST ALT Alkaline Phosphatase Total Protein Albumin HOSPITAL COURSE: Date of Admission:07/09/18 Date of Discharge: 07/10/18 Pre hospital course 73 year-old male with a PMH significant for HTN, CAD s/p CABG, COPD, and chronic constipation. Recently at [facility] for SBO/ileus 07/01-07/03/18. Underwent colonoscopy on 07/[address] Simpson, finding mild diverticulosis. Presented to the ED with bloating and watery stool. Patient reported after being discharged he has been taking Miralax daily and has not had formed stools. Today he reports having 2 BMs of brown not formed watery stool. Patient reports having abdominal distention with back pain. Patient denies fever, chills, cough, dizziness, headache, SOB, CP, palpitations, N/V, melena, hematochezia, dysuria, hematuria. Subsequent hospital course Abdominal bloating and distension --possibly secondary to Miralax use --abd xray shows air distension, no obstruction, no suspicion for ileus --patient has been walking, passing flatus, feels better --simethicone PRN --discharge with prescription for Linzess, follow up with Dr. Simpson as outpatient Hypertension --BP stable --coninued lisinopril CAD s/p CABG --continued diltiazem, Crestor, Zetia, ASA COPD --renay Claire Minutes to complete discharge: 35 Discharge Summary Reason For Visit: HYPONATREMIA/ SLOW TRANSIT CONSTIPATION Current Active Problems Constipation by delayed colonic transit (Acute) Hyponatremia (Acute) Condition: Stable - Instructions Diet, Activity, Other Instructions: Two prescriptions have been sent to your pharmacy, one for Linzess, and one for simethicone. Take these medications as directed. You need to stay well-hydrated. Drink plenty of fluids It is recommended you follow up with road roller operator Dr. Simpson. Referrals: Dean Simpson MD [Staff Physician] - 2 Weeks Robert Gonzáles [Primary Care Provider] - - Home Medications Comprehensive Discharge Medication List: Ambulatory Orders Albuterol Sulfate 0.5% [Ventolin 0.5% Nebulizing Soln. -] 1 amp NEB TID Aspirin [ASA -] 81 mg PO DAILY 07/01/18 Diltiazem Cd [Cardizem Cd -] 120 mg PO HS 07/01/18 Ezetimibe [Zetia -] 10 mg PO HS 07/01/18 Lisinopril [Prinivil] 5 mg PO HS 07/01/18 Salmeterol/Fluticasone [Advair 100Mcg/50Mcg -] 1 inh PO BID 07/01/18 Tiotropium Geraldine [Spiriva] 18 mcg IH HS 07/01/18 Polyethylene Glycol 3350 [Miralax (For Daily Use) -] 17 gm PO BID #1 bottle 05/23 Acetaminophen [Tylenol Extra Strength] 1,000 mg PO TID PRN 07/09/18 Hydrochlorothiazide 12.5 mg PO HS 07/09/18 Linaclotide [Linzess] 145 mcg PO DAILY #30 cap 07/09/18 Rosuvastatin [Crestor -] 40 mg PO HS 07/09/18 Simethicone [Gas Relief] 80 mg PO Q6H #30 tab.chew 07/10/18 This patient is new to me today: Yes Date on this admission: 07/10/18 Emergency Visit: Yes ED Registration Date: 07/09/18 Care time: The patient presented to the Emergency Department on the above date and was hospitalized for further evaluation of their emergent condition. Critical Care patient: No - Discharge Referral Referred to [facility] No
[2018-07-10 14:05] VITALS: BP 109/43; PULSE 62; TEMP 98.6
[2018-07-10] MEDS: SIMETHICONE 80 MG TAB.CHEW (FP) PO SCH ×2 (14:05→17:38)
== END 2018-07-10 17:50 | disposition home or self-care (01) ==
LOC: FER 14:55 → FM/S 21:15
PROVIDERS: ADMIT Internal Medicine; ATTEND Nurse Practitioner Acute Care
PROC: 3E0337Z Introduction of Electrolytic and Water Balance Substance into Peripheral Vein, Percutaneous Approach (ICD-10-PCS; principal; 2018-07-09)
PROC: 3E0F7GC Introduction of Other Therapeutic Substance into Respiratory Tract, Via Natural or Artificial Opening (ICD-10-PCS; 2018-07-09)
DX: E87.1 Hypo-osmolality and hyponatremia (principal); E78.5 Hyperlipidemia, unspecified; E03.9 Hypothyroidism, unspecified; I10 Essential (primary) hypertension; I25.10 Atherosclerotic heart disease of native coronary artery without angina pectoris; J43.9 Emphysema, unspecified
CPT/HCPCS: 36415; 74019-TC-FY; 80048; 80053; 85025; 93005; 94640; 99283-25; G0378; J7030